=== PATIENT | female | born 1965 | race Caucasian/White ===

== ENCOUNTER 2016-12-10 18:40 | Emergency (ER) | payer OTHER ==
[2016-12-10 18:53] VITALS: TEMP 97.6
[2016-12-10] MEDS ORDERED: ACETAMINOPHEN TAB 500 MG TAB PO STA (19:19)
[2016-12-10] MEDS ORDERED: SODIUM CHLORIDE 0.9% 1,000 ML IV ONE (19:19)
[2016-12-10] MEDS ORDERED: METOCLOPRAMIDE 5 MG/ML 2 ML VIAL IVP STA (19:19)
[2016-12-10] MEDS ORDERED: diphenhydrAMINE 50 MG/ML 1 ML VIAL IVP STA (19:19)
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
--- NOTE | 2016-12-10 20:39 | XR ---
EXAMINATION TYPE: XR chest 1V portable DATE OF EXAM: 12/10/2016 COMPARISON: 08/06/2014 HISTORY: Chest pain TECHNIQUE: Single frontal view of the chest is obtained. FINDINGS: Heart and mediastinum are normal. Lungs are clear. Diaphragm is normal. Bony thorax is int act. IMPRESSION: Normal chest. No change.
[2016-12-10 20:41] VITALS: BP 148/76; PULSE 100; RESP 18
--- NOTE | 2016-12-10 20:41 | XR ---
EXAMINATION TYPE: XR pelvis AP view DATE OF EXAM: 12/10/2016 COMPARISON: NONE HISTORY: Pain TECHNIQUE: Single view FINDINGS: Pelvic ring appears intact. Proximal femurs and hip joints are intact. Sacroiliac joints ap pear normal. IMPRESSION: Negative pelvis x-ray exam.
--- NOTE | 2016-12-10 20:43 | XR ---
EXAMINATION TYPE: XR knee complete LT DATE OF EXAM: 12/10/2016 COMPARISON: NONE HISTORY: Knee pain TECHNIQUE: 3 views FINDINGS: I see no fracture nor dislocation. Joint spaces are fairly normal. There is no sign of knee joint effusion. IMPRESSION: Negative left knee exam
== END 2016-12-10 21:02 | disposition home or self-care (01) ==
LOC: EC 18:40
DX: S00.81XA Abrasion of other part of head, initial encounter (principal); M25.562 Pain in left knee; Z88.2 Allergy status to sulfonamides; Z79.82 Long term (current) use of aspirin; Z79.84 Long term (current) use of oral hypoglycemic drugs; Z79.899 Other long term (current) drug therapy; V18.4XXA Pedal cycle driver injured in noncollision transport accident in traffic accident, initial encounter; Y93.55 Activity, bike riding
CPT/HCPCS: 99284 ×2; 96374 ×2; 96375 ×2; 96361 ×2; 71010; 72170; 73562; 72125; 70450; J1200; J2765

== ENCOUNTER → 2018-10-11 | Outpatient (CLI) | payer OTHER ==
--- NOTE | 2018-10-12 16:05 | US ---
EXAMINATION TYPE: US transvaginal DATE OF EXAM: 10/11/2018 COMPARISON: NONE CLINICAL HISTORY: N93.8 abnormal uterine and vaginal bleeding. Postmenopausal bleeding. Difficult exa m due to overlying bowel gas TECHNIQUE: . Transvaginal sonographic images of the pelvis were acquired. Date of LMP: 4 years ago, states she has been having regular cycles again EXAM MEASUREMENTS: Uterus: 6.2 x 2.8 x 3.5 cm Endometrial Stripe: 0.6 cm Right Ovary: Surgically absent Left Ovary: 1.9 x 0.9 x 1.2 cm 1. Uterus: Anteverted Heterogeneous. Nabothian cyst visualized within cervix 2. Endometrium: Thickened for postmenopausal state 3. Right Ovary: Surgically absent 4. Left Ovary: wnl as visualized 5. Bilateral Adnexa: wnl 6. Posterior cul-de-sac: wnl IMPRESSION: 1. Normal pelvic ultrasound as visualized
== END | disposition home or self-care (01) ==
LOC: RADUSWWP 16:57
PROVIDERS: ATTEND Family Medicine
DX: N95.0 Postmenopausal bleeding (principal); Z88.2 Allergy status to sulfonamides; Z91.013 Allergy to seafood
CPT/HCPCS: 76830

== ENCOUNTER 2018-10-26 21:10 | Emergency (ER) | payer OTHER ==
[2018-10-26 21:42] VITALS: BP 191/84; PULSE 105; RESP 18; TEMP 97.9
[2018-10-26] MEDS ORDERED: IBUPROFEN 600 MG TAB PO STA (21:57)
--- NOTE | 2018-10-26 22:28 | XR ---
EXAM: XR Right Knee, 3 views CLINICAL HISTORY: : Pain TECHNIQUE: Three views of the right knee. COMPARISON: No relevant prior studies available. FINDINGS: Bones/joints: Unremarkable. No acute fracture. No dislocation. Soft tissues: Small joint effusion suggested in the suprapatella bursa IMPRESSION: No evidence for fracture. No evidence for malalignment. Suggestion of small effusion in the suprapatellar bursa
--- NOTE | 2018-10-26 23:24 | ED ---
General Adult HPI - General Chief complaint: Extremity Injury, Lower Stated complaint: Knee pain Time Seen by Provider: 10/26/18 21:32 Source: patient Mode of arrival: ambulatory Limitations: no limitations - History of Present Illness Initial comments: Patient is a 53-year-old female presenting to emergency Department with a chief complaint of right knee swelling patient reports the swelling is occurring for approximately one week and she went to her primary care who suspect osteoarthritis gave the patient a Medrol Dosepak. Patient is currently on the second day of the Medrol Dosepak. Patient reports no improvement in symptoms. Patient does wear orthopedic inserts for a height abnormality in her lower extremities. Patient reports approximately 1 week ago she changed the inserts in the right leg which is around the same time she started developing the symptoms. Patient reports mild tenderness with palpation at the right knee. Patient denies any calf tenderness or shortness of breath. Patient reports weightbearing is the aggravating factor denies any alleviated factors. Patient reports the pain is a 5 and dull. - Related Data Home Medications Medication Instructions Recorded Confirmed Albuterol Inhaler [Ventolin Hfa 1 - 2 puff INHALATION RT-Q6H PRN 08/07/14 12/13/16 Inhaler] Albuterol Nebulized [Ventolin 2.5 mg INHALATION RT-Q4H PRN 08/07/14 12/13/16 Nebulized] Aspirin 81 mg PO DAILY 08/07/14 12/13/16 Dextroamphetamine/Amphetamine 20 mg PO BID 08/07/14 12/13/16 [Adderall] Divalproex [Depakote] 500 mg PO BID 08/07/14 12/13/16 Ergocalciferol [Vitamin D2 50,000 unit PO Q7D 08/07/14 12/13/16 (DRISDOL)] HYDROcodone/APAP 5-325MG [[place] 0.5 tab PO BID PRN 08/07/14 12/13/16 5-325] Potassium Chloride 8 meq PO DAILY 08/07/14 12/13/16 QUEtiapine [SEROquel] 100 mg PO HS 08/07/14 12/13/16 Simvastatin [Zocor] 80 mg PO HS 08/07/14 12/13/16 cloNIDine HCL [Catapres] 0.2 mg PO BID 08/07/14 12/13/16 metFORMIN HCL [Glucophage] 500 mg PO BID 08/07/14 12/13/16 Baclofen [Lioresal] 5 - 10 mg PO TID PRN 12/10/16 12/13/16 DULoxetine HCL [Cymbalta] 60 mg PO BID 12/10/16 12/13/16 Allergies Allergy/AdvReac Type Severity Reaction Status Date / Time Sulfa (Sulfonamide Allergy Unknown Verified 10/26/18 21:42 Antibiotics) Review of Systems ROS Statement: Those systems with pertinent positive or pertinent negative responses have been documented in the HPI. ROS Other: All systems not noted in ROS Statement are negative. Past Medical History Past Medical History: Diabetes Mellitus, GERD/Reflux, Hyperlipidemia, Hypertension, Memory Impairment History of Any Multi-Drug Resistant Organisms: None Reported Past Surgical History: Adenoidectomy, Tonsillectomy Additional Past Surgical History / Comment(s): d & c Past Anesthesia/Blood Transfusion Reactions: Previous Problems w/ Anesthesia Additional Past Anesthesia/Blood Transfusion Reaction / Comment(s): hard to wake patient up. Past Psychological History: ADD/ADHD, Anxiety, Bipolar, Depression, Panic Di sorder, PTSD Smoking Status: Current every day smoker Past Alcohol Use History: Occasional Past Drug Use History: None Reported - Past Family History Father Family Medical History: Diabetes Mellitus, Hyperlipidemia, Hypertension Mother Additional Family Medical History / Comment(s): alcoholism, psych history General Exam Limitations: no limitations General appearance: alert, in no apparent distress Head exam: Present: atraumatic, normocephalic, normal inspection Eye exam: Present: normal appearance, PERRL, EOMI Pupils: Present: normal accommodation ENT exam: Present: normal exam, normal oropharynx, mucous membranes moist, TM's normal bilaterally, normal external ear exam Neck exam: Present: normal inspection, full ROM Respiratory exam: Present: normal lung sounds bilaterally Cardiovascular Exam: Present: regular rate, normal rhythm, normal heart sounds GI/Abdominal exam: Present: soft, normal bowel sounds Extremities exam: Present: full ROM, tenderness, normal capillary refill, joint swelling. Absent: normal inspection (Edema in the right knee), calf tenderness Back exam: Present: normal inspection, full ROM Neurological exam: Present: alert, oriented X3, CN II-XII intact Psychiatric exam: Present: normal affect, normal mood Skin exam: Present: warm, intact, normal color Course Vital Signs 10/26/18 21:40 Temperature 97.9 F Pulse Rate 105 H Respiratory 18 Rate Blood Pressure 191/84 O2 Sat by Pulse 96 Oximetry Procedures - Orthopedic Splinting/Casting Injury #1 Side: right Lower Extremity Injury Location: knee Lower Extremity Immobilizer: Ilya wrap Medical Decision Making - Medical Decision Making Patient is a 53-year-old female presenting to emergency Department with a chief complaint of right knee swelling. Patient appears to have mild swelling in the right knee with negative Homans sign. She is neurovascularly intact. Patient reports only pain with ambulation and no limitation of range of motion. X-ray of the knee is indicative of a small effusion in the suprapatellar bursa but no fractures or dislocations. I suspect the patient to have developed the symptoms due to recent changes in her orthopedic inserts. Patient advised to follow-up with ad operations specialist for further management if symptoms not improved. Patient advised to revert using to the previous orthopedic inserts and to monitor for improvement in symptoms. Strict return parameters were thoroughly discussed the patient was understanding and agreeable. Ilya wrap applied in the knee. Case discussed with physician. Disposition Clinical Impression: Knee effusion Disposition: HOME SELF-CARE Condition: Stable Instructions (If sedation given, give patient instructions): Swollen Knee Joint (ED) Additional Instructions: Please follow up with an ad operations specialist. Please return to emergency department if symptoms worsen. Is patient prescribed a controlled substance at d/c from ED?: No Referrals: Isacc Gongora MD [Primary Care Provider] - 1-2 days Aram Saravia DO [Medical Doctor] - 1-2 days Time of Disposition: 23:24
== END 2018-10-26 23:45 | disposition home or self-care (01) ==
LOC: EC 21:10
DX: M25.461 Effusion, right knee (principal); E11.9 Type 2 diabetes mellitus without complications; E78.5 Hyperlipidemia, unspecified; I10 Essential (primary) hypertension; F31.9 Bipolar disorder, unspecified; F41.0 Panic disorder [episodic paroxysmal anxiety]; F90.9 Attention-deficit hyperactivity disorder, unspecified type; F17.200 Nicotine dependence, unspecified, uncomplicated; Z88.2 Allergy status to sulfonamides; Z79.82 Long term (current) use of aspirin; Z79.84 Long term (current) use of oral hypoglycemic drugs; Z79.899 Other long term (current) drug therapy
CPT/HCPCS: 99283

== ENCOUNTER 2018-10-31 11:14 | Emergency (ER) | payer OTHER ==
[2018-10-31] MEDS ORDERED: SODIUM CHLORIDE 0.9% 1,000 ML IV ONE ×2 (11:30)
[2018-10-31 11:35] VITALS: TEMP 98.9
[2018-10-31] MEDS ORDERED: LORazepam 2 MG/ML INJ IV STA (11:38)
--- NOTE | 2018-10-31 11:44 | ED ---
Altered Mental Status HPI - General Chief Complaint: Altered Mental Status Stated Complaint: Mental health Time Seen by Provider: 10/31/18 11:19 Source: patient, RN notes reviewed, old records reviewed Mode of arrival: EMS Limitations: no limitations - History of Present Illness Initial Comments: Patient is a 53-year-old female reportedly recently homeless staying at a community center. She had reported agitation and community center and EMS was contacted. She went onto the EMS without difficulty but then shortly after became increasingly agitated, yelling profanities and exhibiting signs of Tourette's. Patient has had no history of Tourette's the past. She reports that she has not been taking her medications as prescribed for the past few m ont. She states that she is diabetic and istaking Depakote as well. Patient reports that she has had no significant pain at this time. Patient arrives to emergency department today with agitation, and occasional episodes of lucency in conversation and then back to yelling profanities. - Related Data Home Medications Medication Instructions Recorded Confirmed Aspirin 81 mg PO DAILY 08/07/14 10/31/18 Dextroamphetamine/Amphetamine 20 mg PO BID 08/07/14 10/31/18 [Adderall] Divalproex [Depakote] 500 mg PO BID 08/07/14 10/31/18 HYDROcodone/APAP 5-325MG [[place] 0.5 tab PO BID PRN 08/07/14 10/31/18 5-325] Potassium Chloride 8 meq PO DAILY 08/07/14 10/31/18 Simvastatin [Zocor] 80 mg PO HS 08/07/14 10/31/18 cloNIDine HCL [Catapres] 0.2 mg PO BID 08/07/14 10/31/18 Baclofen [Lioresal] 10 mg PO TID PRN 12/10/16 10/31/18 DULoxetine HCL [Cymbalta] 60 mg PO BID 12/10/16 10/31/18 Chlorthalidone [Hygroton] 25 mg PO DAILY 10/31/18 10/31/18 Glimepiride [Amaryl] 4 mg PO BID 10/31/18 10/31/18 Levothyroxine Sodium [Synthroid] 50 mcg PO DAILY 10/31/18 10/31/18 QUEtiapine FUMARATE [SEROquel] 300 mg PO HS 10/31/18 10/31/18 metFORMIN HCL 1,000 mg PO BID 10/31/18 10/31/18 Allergies Allergy/AdvReac Type Severity Reaction Status Date / Time Sulfa (Sulfonamide Allergy Unknown Verified 10/31/18 11:45 Antibiotics) Review of Systems ROS Statement: Those systems with pertinent positive or pertinent negative responses have been documented in the HPI. ROS Other: All systems not noted in ROS Statement are negative. Past Medical History Past Medical History: Diabetes Mellitus, GERD/Reflux, Hyperlipidemia, Hypertension, Memory Impairment History of Any Multi-Drug Resistant Organisms: None Reported Past Surgical History: Adenoidectomy, Tonsillectomy Additional Past Surgical History / Comment(s): d & c Past Anesthesia/Blood Transfusion Reactions: Previous Problems w/ Anesthesia Additional Past Anesthesia/Blood Transfusion Reaction / Comment(s): hard to wake patient up. Past Psychological History: ADD/ADHD, Anxiety, Bipolar, Depression, Panic Disorder, PTSD Smoking Status: Current every day smoker Past Alcohol Use History: Occasional Past Drug Use History: None Reported - Past Family History Father Family Medical History: Diabetes Mellitus, Hyperlipidemia, Hypertension Mother Additional Family Medical History / Comment(s): alcoholism, psych history General Exam - General Exam Comments Initial Comments: 53-year-old female. Alert and oriented to self and date and place but will occasionally have episodes of unintelligible speech. Limitations: no limitations, altered mental status (Patient has loosened episodes conversation minimal shout profanities.) General appearance: alert, appears intoxicated, anxious, other (smell of EtOH.) Head exam: Present: atraumatic, normocephalic, normal inspection Eye exam: Present: normal appearance, PERRL, EOMI. Absent: scleral icterus, conjunctival injection, periorbital swelling ENT exam: Present: normal exam, mucous membranes moist Neck exam: Present: normal inspection. Absent: tenderness, meningismus, lymphadenopathy Respiratory exam: Present: normal lung sounds bilaterally. Absent: respiratory distress, wheezes, rales, rhonchi, stridor Cardiovascular Exam: Present: regular rate, normal rhythm, normal heart sounds. Absent: systolic murmur, diastolic murmur, rubs, gallop, clicks GI/Abdominal exam: Present: soft, normal bowel sounds. Absent: distended, tenderness, guarding, rebound, rigid Extremities exam: Present: normal inspection, other (Dystonic movements of upper arms and legs.) Back exam: Present: normal inspection Neurological exam: Present: alert, altered Psychiatric exam: Present: agitated. Absent: normal affect, normal mood Skin exam: Present: warm, dry, intact, normal color. Absent: rash Course Vital Signs 10/31/18 10/31/18 10/31/18 11:28 12:19 12:30 Temperature 98.9 F Pulse Rate 106 H 103 H 103 H Respiratory 28 H Rate Blood Pressure 151/117 151/117 158/102 O2 Sat by Pulse 96 96 91 L Oximetry 10/31/18 10/31/18 10/31/18 13:00 13:30 13:37 Temperature Pulse Rate 96 100 100 Respiratory 20 Rate Blood Pressure 143/94 132/86 132/86 O2 Sat by Pulse 92 L Oximetry 10/31/18 10/31/18 10/31/18 14:00 14:30 15:00 Temperature Pulse Rate 98 96 101 H Respiratory 20 20 Rate Blood Pressure 162/94 157/94 151/97 O2 Sat by Pulse Oximetry 10/31/18 10/31/18 10/31/18 15:30 16:00 16:30 Temperature Pulse Rate 107 H Respiratory Rate Blood Pressure 126/90 143/109 143/109 O2 Sat by Pulse Oximetry 10/31/18 10/31/18 17:00 17:30 Temperature Pulse Rate 106 H Respiratory 18 Rate Blood Pressure 143/109 153/69 O2 Sat by Pulse 94 L Oximetry - Reevaluation(s) Reevaluation #1: 10/31/18 11:42 Upon reviewing of patient's medication and fell bottles it appears the Patient has not been taking her medications since June of this year. She did have baclofen filled on 96 and has taking some of these she does report that she could have sold them as well. Reevaluation #2: 10/31/18 12:23 Patient is given IV Ativan to help with agitation. Reevaluated and resting comfortably in bed sleeping. We'll go to CT. Reevaluation #3: 10/31/18 13:17 Patient was reevaluated time resting comfortably and sleeping. She was given Ativan. She is arousable. Patient CT was reviewed and negative for any acute process. Patient is medically clear at this time for EPS evaluation. Medical Decision Making - Medical Decision Making Patient is a 33-year-old female who presents emergency Department today with complaints of altered mental status, requesting C6 services. She is currently homeless staying at care shelters. When she arrived to arrived quite agitated yelling profanities but then would have lucid conversations between, concern for similar to Tourette's. Patient has been noncompliant with multiple or medications. Patient had full evaluation given fluids and due to agitation was given Ativan. After resting emergency room if she was alert and oriented and much more cooperative. No further yelling profanities or concern for dystonic reaction. Patient was evaluated by mobile crisis unit and EPS. They deem the Patient is stable for discharge home and has outpatient follow-up with mobile crisis unit. Patient is agreeable to this plan. Patient has been advised to return to the ED if any alarming signs or symptoms occur. - Lab Data Result diagrams: 10/31/18 11:50 10/31/18 11:50 Lab Results 10/31/18 10/31/18 10/31/18 Range/Units 11:50 11:50 11:50 WBC 12.6 H (3.8-10.6) k/uL RBC 4.61 (3.80-5.40) m/uL Hgb 14.1 (11.4-16.0) gm/dL Hct 41.7 (34.0-46.0) % MCV 90.4 (80.0-100.0) fL MCH 30.5 (25.0-35.0) pg MCHC 33.8 (31.0-37.0) g/dL RDW 13.4 (11.5-15.5) % Plt Count 338 (150-450) k/uL Neutrophils % 67 % Lymphocytes % 25 % Monocytes % 3 % Eosinophils % 3 % Basophils % 1 % Neutrophils # 8.4 H (1.3-7.7) k/uL Lymphocytes # 3.2 (1.0-4.8) k/uL Monocytes # 0.4 (0-1.0) k/uL Eosinophils # 0.4 (0-0.7) k/uL Basophils # 0.1 (0-0.2) k/uL PT (9.0-12.0) sec INR (<1.2) APTT (22.0-30.0) sec Sodium 142 (137-145) mmol/L Potassium 3.7 (3.5-5.1) mmol/L Chloride 99 (98-107) mmol/L Carbon Dioxide 29 (22-30) mmol/L Anion Gap 14 mmol/L BUN 17 (7-17) mg/dL Creatinine 0.50 L (0.52-1.04) mg/dL Est GFR (CKD-EPI)AfAm >90 (>60 ml/min/1.73 sqM) Est GFR (CKD-EPI)NonAf >90 (>60 ml/min/1.73 sqM) Glucose 220 H (74-99) mg/dL Calcium 10.5 H (8.4-10.2) mg/dL Total Bilirubin 0.4 (0.2-1.3) mg/dL AST 20 (14-36) U/L ALT 17 (9-52) U/L Alkaline Phosphatase 74 (38-126) U/L Troponin I (0.000-0.034) ng/mL Total Protein 7.8 (6.3-8.2) g/dL Albumin 4.6 (3.5-5.0) g/dL Urine Color Colorless Urine Appearance Clear (Clear) Urine pH 5.5 (5.0-8.0) Ur Specific [place] 1.005 (1.001-1.035) Urine Protein Negative (Negative) Urine Glucose (UA) Negative (Negative) Urine Ketones Negative (Negative) Urine Blood Negative (Negative) Urine Nitrite Negative (Negative) Urine Bilirubin Negative (Negative) Urine Urobilinogen <2.0 (<2.0) mg/dL Ur Leukocyte Esterase Negative (Negative) Urine Opiates Screen Not Detected (NotDetected) Ur Oxycodone Screen Not Detected (NotDetected) Urine Methadone Screen Not Detected (NotDetected) Ur Propoxyphene Screen Not Detected (NotDetected) Ur Barbiturates Screen Not Detected (NotDetected) Valproic Acid 17.7 ug/mL U Tricyclic Antidepress Not Detected (NotDetected) Ur Phencyclidine Scrn Not Detected (NotDetected) Ur Amphetamines Screen Not Detected (NotDetected) U Methamphetamines Scrn Not Detected (NotDetected) U Benzodiazepines Scrn Not Detected (NotDetected) Urine Cocaine Screen Not Detected (NotDetected) U Marijuana (THC) Screen Not Detected (NotDetected) Serum Alcohol 82 mg/dL 10/31/18 10/31/18 Range/Units 11:50 11:50 WBC (3.8-10.6) k/uL RBC (3.80-5.40) m/uL Hgb (11.4-16.0) gm/dL Hct (34.0-46.0) % MCV (80.0-100.0) fL MCH (25.0-35.0) pg MCHC (31.0-37.0) g/dL RDW (11.5-15.5) % Plt Count (150-450) k/uL Neutrophils % % Lymphocytes % % Monocytes % % Eosinophils % % Basophils % % Neutrophils # (1.3-7.7) k/uL Lymphocytes # (1.0-4.8) k/uL Monocytes # (0-1.0) k/uL Eosinophils # (0-0.7) k/uL Basophils # (0-0.2) k/uL PT 9.4 (9.0-12.0) sec INR 0.9 (<1.2) APTT 22.2 (22.0-30.0) sec Sodium (137-145) mmol/L Potassium (3.5-5.1) mmol/L Chloride (98-107) mmol/L Carbon Dioxide (22-30) mmol/L Anion Gap mmol/L BUN (7-17) mg/dL Creatinine (0.52-1.04) mg/dL Est GFR (CKD-EPI)AfAm (>60 ml/min/1.73 sqM) Est GFR (CKD-EPI)NonAf (>60 ml/min/1.73 sqM) Glucose (74-99) mg/dL Calcium (8.4-10.2) mg/dL Total Bilirubin (0.2-1.3) mg/dL AST (14-36) U/L ALT (9-52) U/L Alkaline Phosphatase (38-126) U/L Troponin I <0.012 (0.000-0.034) ng/mL Total Protein (6.3-8.2) g/dL Albumin (3.5-5.0) g/dL Urine Color Urine Appearance (Clear) Urine pH (5.0-8.0) Ur Specific [place] (1.001-1.035) Urine Protein (Negative) Urine Glucose (UA) (Negative) Urine Ketones (Negative) Urine Blood (Negative) Urine Nitrite (Negative) Urine Bilirubin (Negative) Urine Urobilinogen (<2.0) mg/dL Ur Leukocyte Esterase (Negative) Urine Opiates Screen (NotDetected) Ur Oxycodone Screen (NotDetected) Urine Methadone Screen (NotDetected) Ur Propoxyphene Screen (NotDetected) Ur Barbiturates Screen (NotDetected) Valproic Acid ug/mL U Tricyclic Antidepress (NotDetected) Ur Phencyclidine Scrn (NotDetected) Ur Amphetamines Screen (NotDetected) U Methamphetamines Scrn (NotDetected) U Benzodiazepines Scrn (NotDetected) Urine Cocaine Screen (NotDetected) U Marijuana (THC) Screen (NotDetected) Serum Alcohol mg/dL 10/31/18 12:46 EKG performed at 02/09/2017 shows normal sinus rhythm prolonged QT. Ventricular rate 90 bpm. Intervals 1:30 milliseconds. QRS duration 102 ms. QT QTc is 392/500 ms. - Radiology Data Radiology results: report reviewed Disposition Clinical Impression: History of psychiatric disorder, Mood changes Disposition: HOME SELF-CARE Condition: Good Instructions (If sedation given, give patient instructions): Mood Disorders (ED) Additional Instructions: Follow-up with mobile crisis unit. Return to the emergency department if any alarming signs or symptoms occur. Is patient prescribed a controlled substance at d/c from ED?: No Referrals: Isacc Gongora MD [Primary Care Provider] - 1-2 days Time of Disposition: 17:54
[2018-10-31] MEDS: LORazepam 2 MG/ML INJ IM STA ×2 (12:02→12:03)
[2018-10-31 12:07] LABS: Appearance,Urine Clear (Clear); Bilirubin,Urine Negative (Negative); Blood,Urine Negative (Negative); Color,Urine Colorless; Glucose,Urine (UA) Negative (Negative); Ketones,Urine Negative (Negative); Leukocyte Esterase,Urine Negative (Negative); Nitrite,Urine Negative (Negative); PH, Urine 5.5 (5.0-8.0); Protein,Urine Negative (Negative); Specific Gravity,Urine 1.005 (1.001-1.035); Urobilinogen,Urine <2.0 mg/dL (<2.0)
[2018-10-31 12:17] LABS: INR 0.9 (<1.2); Partial Thromboplastin Time 22.2 sec (22.0-30.0); Prothrombin Time 9.4 sec (9.0-12.0)
[2018-10-31 12:19] LABS: ALT 17 U/L (9-52); AST 20 U/L (14-36); African American GFR (CKD) >90 (>60 ml/min/1.73 sqM); Albumin 4.6 g/dL (3.5-5.0); Alkaline Phosphatase 74 U/L (38-126); Anion Gap 14 mmol/L; Blood Urea Nitrogen 17 mg/dL (7-17); Calcium 10.5 mg/dL (8.4-10.2); Carbon Dioxide 29 mmol/L (22-30); Chloride 99 mmol/L (98-107); Glucose 220 mg/dL (74-99); Potassium 3.7 mmol/L (3.5-5.1); Sodium 142 mmol/L (137-145); Total Bilirubin 0.4 mg/dL (0.2-1.3); Total Protein 7.8 g/dL (6.3-8.2)
[2018-10-31 12:23] LABS: Basophils # (A) 0.1 k/uL (0-0.2); Basophils % (A) 1 %; Eosinophils # (A) 0.4 k/uL (0-0.7); Eosinophils % (A) 3 %; HCT 41.7 % (34.0-46.0); HGB 14.1 gm/dL (11.4-16.0); Lymphocytes # (A) 3.2 k/uL (1.0-4.8); Lymphocytes % (A) 25 %; MCH 30.5 pg (25.0-35.0); MCHC 33.8 g/dL (31.0-37.0); MCV 90.4 fL (80.0-100.0); Mean Platelet Volume 6.5; Monocytes # (A) 0.4 k/uL (0-1.0); Monocytes % (A) 3 %; Neutrophils # (A) 8.4 k/uL (1.3-7.7); Neutrophils % (A) 67 %; Platelet Count 338 k/uL (150-450); RBC 4.61 m/uL (3.80-5.40); RDW 13.4 % (11.5-15.5); WBC 12.6 k/uL (3.8-10.6)
[2018-10-31 12:32] LABS: Alcohol 82 mg/dL
[2018-10-31 12:37] LABS: Amphetamine Screen,Urine Not Detected (NotDetected); Barbiturate Screen,Urine Not Detected (NotDetected); Benzodiazepines Screen,Urine Not Detected (NotDetected); Cocaine Screen,Urine Not Detected (NotDetected); Methadone Screen, Urine Not Detected (NotDetected); Opiate Screen,Urine Not Detected (NotDetected); Oxycodone Screen, Urine Not Detected (NotDetected); Phencyclidine Screen,Urine Not Detected (NotDetected); Tricyclic Antidepressant,Urine Not Detected (NotDetected); Urn Cannabinoid Scrn Not Detected (NotDetected)
--- NOTE | 2018-10-31 12:58 | CT ---
EXAMINATION TYPE: CT brain wo con DATE OF EXAM: 10/31/2018 HISTORY: AMS CT DLP: 1098.4 mGycm. Automated Exposure Control for Dose Reduction was Utilized. TECHNIQUE: CT scan of the head is performed without contrast. COMPARISON: CT brain December 13, 2016. FINDINGS: There is no acute intracranial hemorrhage or midline shift identified. There is diffuse v entricular and sulcal prominence consistent with diffuse age-related cerebral atrophy. Hester-white mat ter differentiation is fairly well maintained. The globes are intact and the visualized sinuses are clear. IMPRESSION: No acute intracranial hemorrhage or midline shift. There is mild diffuse age-related ce rebral atrophy redemonstrated. No significant change from prior.
[2018-10-31 17:34] VITALS: BP 153/69; PULSE 106; RESP 18
== END 2018-10-31 18:30 | disposition home or self-care (01) ==
LOC: EC 11:14
DX: R45.1 Restlessness and agitation (principal); R25.8 Other abnormal involuntary movements; R41.82 Altered mental status, unspecified; E11.9 Type 2 diabetes mellitus without complications; E78.5 Hyperlipidemia, unspecified; I10 Essential (primary) hypertension; F90.9 Attention-deficit hyperactivity disorder, unspecified type; F41.0 Panic disorder [episodic paroxysmal anxiety]; F31.9 Bipolar disorder, unspecified; F17.200 Nicotine dependence, unspecified, uncomplicated; Z88.2 Allergy status to sulfonamides; Z79.82 Long term (current) use of aspirin; Z79.84 Long term (current) use of oral hypoglycemic drugs; Z79.899 Other long term (current) drug therapy; Z81.8 Family history of other mental and behavioral disorders
CPT/HCPCS: 36415; 93005; 80164; 80053; 84484; 85025; 85610; 85730; 81003; 80306; 70450; 99285; 96374; 96361 ×5; G0480; J2060; 80320

== ENCOUNTER 2018-11-24 15:12 | Emergency (ER) | payer OTHER ==
[2018-11-24] MEDS ORDERED: LORazepam 2 MG/ML INJ IV STA (15:48)
--- NOTE | 2018-11-24 16:16 | ED ---
Psych HPI - General Source: patient, EMS, RN notes reviewed Mode of arrival: EMS Limitations: no limitations <Richi Lew - Last Filed: 11/24/18 16:14> <Chance Garcia - Last Filed: 11/24/18 22:09> - General Chief Complaint: Psychiatric Symptoms Stated Complaint: Mental Health Time Seen by Provider: 11/24/18 15:25 - History of Present Illness Initial Comments: 53-year-old female presents emergency Department via EMS for abnormal behavior. Patient was found to be acting bizarre. Patient states that she has no specific complaints. Patient does admit she has done a doesn't his landing states that she normally has his abnormal jerking movements but they are worsened usual. Patient states that she has some lower leg while pain but this is chronic in nature. Denies any chest or shortness breath. She states she had multiple medications and has been taking her medications. Patient denies any suicidal homicidal ideation. Denies any drug use no alcohol abuse (Richi Lew) - Related Data Home Medications Medication Instructions Recorded Confirmed Aspirin 81 mg PO DAILY 08/07/14 11/24/18 Dextroamphetamine/Amphetamine 20 mg PO BID 08/07/14 11/24/18 [Adderall] Divalproex [Depakote] 500 mg PO BID 08/07/14 11/24/18 HYDROcodone/APAP 5-325MG [[place] 1 tab PO DAILY PRN 08/07/14 11/24/18 5-325] Potassium Chloride 8 meq PO DAILY 08/07/14 11/24/18 Simvastatin [Zocor] 80 mg PO HS 08/07/14 11/24/18 cloNIDine HCL [Catapres] 0.2 mg PO BID 08/07/14 11/24/18 Baclofen [Lioresal] 10 mg PO TID PRN 12/10/16 11/24/18 DULoxetine HCL [Cymbalta] 60 mg PO BID 12/10/16 11/24/18 Chlorthalidone [Hygroton] 25 mg PO DAILY 10/31/18 11/24/18 Glimepiride [Amaryl] 4 mg PO BID 10/31/18 11/24/18 Levothyroxine Sodium [Synthroid] 50 mcg PO MOTUWETHFRSA 10/31/18 11/24/18 QUEtiapine FUMARATE [SEROquel] 300 mg PO HS 10/31/18 11/24/18 metFORMIN HCL 1,000 mg PO BID 10/31/18 11/24/18 Albuterol Nebulized [Ventolin 2.5 mg INHALATION RT-QID 11/24/18 11/24/18 Nebulized] Aspirin EC [Ecotrin Low Dose] 81 mg PO DAILY 11/24/18 11/24/18 Ergocalciferol [Vitamin D2] 50,000 unit PO Q14D 11/24/18 11/24/18 Nystatin [Nystop] 1 applic TOPICAL QID 11/24/18 11/24/18 Allergies Allergy/AdvReac Type Severity Reaction Status Date / Time Sulfa (Sulfonamide Allergy Unknown Verified 11/24/18 16:59 Antibiotics) Review of Systems ROS Other: All systems not noted in ROS Statement are negative. <Richi Lew - Last Filed: 11/24/18 16:14> ROS Other: All systems not noted in ROS Statement are negative. <Chance Garcia - Last Filed: 11/24/18 22:09> ROS Statement: Those systems with pertinent positive or pertinent negative responses have been documented in the HPI. Past Medical History Past Medical History: Diabetes Mellitus, GERD/Reflux, Hyperlipidemia, Hypertension, Memory Impairment History of Any Multi-Drug Resistant Organisms: None Reported Past Surgical History: Adenoidectomy, Tonsillectomy Additional Past Surgical History / Comment(s): d & c Past Anesthesia/Blood Transfusion Reactions: Previous Problems w/ Anesthesia Additional Past Anesthesia/Blood Transfusion Reaction / Comment(s): hard to wake patient up. Past Psychological History: ADD/ADHD, Anxiety, Bipolar, Depression, Panic Disorder, PTSD Smoking Status: Current every day smoker Past Alcohol Use History: Occasional Past Drug Use History: None Reported - Past Family History Father Family Medical History: Diabetes Mellitus, Hyperlipidemia, Hypertension Mother Additional Family Medical History / Comment(s): alcoholism, psych history <Richi Lew - Last Filed: 11/24/18 16:14> General Exam Limitations: no limitations General appearance: alert, in no apparent distress Head exam: Present: atraumatic, normocephalic, normal inspection Eye exam: Present: normal appearance, PERRL, EOMI. Absent: scleral icterus, conjunctival injection, periorbital swelling ENT exam: Present: normal exam, normal oropharynx, mucous membranes moist Neck exam: Present: normal inspection, full ROM. Absent: tenderness, meningismus, lymphadenopathy Respiratory exam: Present: normal lung sounds bilaterally. Absent: respiratory distress, wheezes, rales, rhonchi, stridor Cardiovascular Exam: Present: regular rate, normal rhythm, normal heart sounds. Absent: systolic murmur, diastolic murmur, rubs, gallop, clicks GI/Abdominal exam: Present: soft, normal bowel sounds. Absent: distended, tend erness, guarding, rebound, rigid Neurological exam: Present: alert Psychiatric exam: Present: agitated, anxious Skin exam: Present: warm, dry, intact, normal color. Absent: rash <Richi Lew - Last Filed: 11/24/18 16:14> Course <Chance Garcia - Last Filed: 11/24/18 22:09> Vital Signs 11/24/18 11/24/18 15:16 18:14 Temperature 98.2 F Pulse Rate 104 H 99 Respiratory 16 16 Rate Blood Pressure 139/94 150/87 O2 Sat by Pulse 99 99 Oximetry - Reevaluation(s) Reevaluation #1: 11/24/18 19:45 Certificate of commitment has been completed. EPS nurse is currently working on placement for the patient for psychiatric treatment. (Chance Garcia) Medical Decision Making - Lab Data Result diagrams: 11/24/18 16:05 11/24/18 16:05 <Chance Garcia - Last Filed: 11/24/18 22:09> - Medical Decision Making Patient has been medically cleared. Patient was evaluated by EPS nurse in the ED. Certificate of commitment was completed. Patient will be transferred to [facility] for psychiatric evaluation/treatment. Patient was accepted for transfer by Dr. Washington (psych). (Chance Garcia) - Lab Data Lab Results 11/24/18 11/24/18 11/24/18 Range/Units 15:53 16:05 16:05 WBC 11.9 H (3.8-10.6) k/uL RBC 4.33 (3.80-5.40) m/uL Hgb 14.2 (11.4-16.0) gm/dL Hct 39.9 (34.0-46.0) % MCV 92.1 (80.0-100.0) fL MCH 32.9 (25.0-35.0) pg MCHC 35.7 (31.0-37.0) g/dL RDW 13.2 (11.5-15.5) % Plt Count 367 (150-450) k/uL Neutrophils % 65 % Lymphocytes % 25 % Monocytes % 6 % Eosinophils % 1 % Basophils % 1 % Neutrophils # 7.7 (1.3-7.7) k/uL Lymphocytes # 3.0 (1.0-4.8) k/uL Monocytes # 0.7 (0-1.0) k/uL Eosinophils # 0.2 (0-0.7) k/uL Basophils # 0.1 (0-0.2) k/uL Sodium 142 (137-145) mmol/L Potassium 3.7 (3.5-5.1) mmol/L Chloride 100 (98-107) mmol/L Carbon Dioxide 30 (22-30) mmol/L Anion Gap 12 mmol/L BUN 18 H (7-17) mg/dL Creatinine 0.41 L (0.52-1.04) mg/dL Est GFR (CKD-EPI)AfAm >90 (>60 ml/min/1.73 sqM) Est GFR (CKD-EPI)NonAf >90 (>60 ml/min/1.73 sqM) Glucose 142 H (74-99) mg/dL Calcium 10.2 (8.4-10.2) mg/dL Total Bilirubin 0.5 (0.2-1.3) mg/dL AST 31 (14-36) U/L ALT 25 (9-52) U/L Alkaline Phosphatase 91 (38-126) U/L Total Protein 7.6 (6.3-8.2) g/dL Albumin 4.5 (3.5-5.0) g/dL Urine Color Yellow Urine Appearance Clear (Clear) Urine pH 5.5 (5.0-8.0) Ur Specific [place] 1.027 (1.001-1.035) Urine Protein Trace H (Negative) Urine Glucose (UA) Negative (Negative) Urine Ketones 2+ H (Negative) Urine Blood Negative (Negative) Urine Nitrite Negative (Negative) Urine Bilirubin Negative (Negative) Urine Urobilinogen <2.0 (<2.0) mg/dL Ur Leukocyte Esterase Negative (Negative) Urine Opiates Screen Detected H (NotDetected) Ur Oxycodone Screen Not Detected (NotDetected) Urine Methadone Screen Not Detected (NotDetected) Ur Propoxyphene Screen Not Detected (NotDetected) Ur Barbiturates Screen Not Detected (NotDetected) U Tricyclic Antidepress Not Detected (NotDetected) Ur Phencyclidine Scrn Not Detected (NotDetected) Ur Amphetamines Screen Detected H (NotDetected) U Methamphetamines Scrn Not Detected (NotDetected) U Benzodiazepines Scrn Not Detected (NotDetected) Urine Cocaine Screen Not Detected (NotDetected) U Marijuana (THC) Screen Not Detected (NotDetected) Serum Alcohol <10 mg/dL Disposition <Richi Lew - Last Filed: 11/24/18 16:14> Time of Disposition: 21:50 - Out of Hospital Transfer - Req. Specs Out of Hospital Transfer - Requested Specifics: Psychiatric Non-ICU ([facility]) <Chance Garcia - Last Filed: 11/24/18 22:09> Clinical Impression: Delusional thoughts Disposition: TRANSFER TO PSYCH HOSP/UNIT Condition: Stable Referrals: Isacc Gongora MD [Primary Care Provider] - 1-2 days
[2018-11-24 16:26] LABS: Basophils # (A) 0.1 k/uL (0-0.2); Basophils % (A) 1 %; Eosinophils # (A) 0.2 k/uL (0-0.7); Eosinophils % (A) 1 %; HCT 39.9 % (34.0-46.0); HGB 14.2 gm/dL (11.4-16.0); Lymphocytes % (A) 25 %; MCH 32.9 pg (25.0-35.0); MCHC 35.7 g/dL (31.0-37.0); MCV 92.1 fL (80.0-100.0); Mean Platelet Volume 6.7; Monocytes # (A) 0.7 k/uL (0-1.0); Monocytes % (A) 6 %; Neutrophils # (A) 7.7 k/uL (1.3-7.7); Neutrophils % (A) 65 %; Platelet Count 367 k/uL (150-450); RBC 4.33 m/uL (3.80-5.40); RDW 13.2 % (11.5-15.5); WBC 11.9 k/uL (3.8-10.6)
[2018-11-24 16:32] LABS: Appearance,Urine Clear (Clear); Bilirubin,Urine Negative (Negative); Blood,Urine Negative (Negative); Color,Urine Yellow; Glucose,Urine (UA) Negative (Negative); Ketones,Urine 2+ (Negative); Leukocyte Esterase,Urine Negative (Negative); Nitrite,Urine Negative (Negative); PH, Urine 5.5 (5.0-8.0); Protein,Urine Trace (Negative); Specific Gravity,Urine 1.027 (1.001-1.035); Urobilinogen,Urine <2.0 mg/dL (<2.0)
[2018-11-24 16:38] LABS: Amphetamine Screen,Urine Detected (NotDetected); Barbiturate Screen,Urine Not Detected (NotDetected); Benzodiazepines Screen,Urine Not Detected (NotDetected); Cocaine Screen,Urine Not Detected (NotDetected); Methadone Screen, Urine Not Detected (NotDetected); Opiate Screen,Urine Detected (NotDetected); Oxycodone Screen, Urine Not Detected (NotDetected); Phencyclidine Screen,Urine Not Detected (NotDetected); Tricyclic Antidepressant,Urine Not Detected (NotDetected); Urn Cannabinoid Scrn Not Detected (NotDetected)
[2018-11-24 16:43] LABS: ALT 25 U/L (9-52); AST 31 U/L (14-36); African American GFR (CKD) >90 (>60 ml/min/1.73 sqM); Albumin 4.5 g/dL (3.5-5.0); Alcohol <10 mg/dL; Alkaline Phosphatase 91 U/L (38-126); Anion Gap 12 mmol/L; Blood Urea Nitrogen 18 mg/dL (7-17); Calcium 10.2 mg/dL (8.4-10.2); Carbon Dioxide 30 mmol/L (22-30); Chloride 100 mmol/L (98-107); Glucose 142 mg/dL (74-99); Non-African American GFR(CKD) >90 (>60 ml/min/1.73 sqM); Potassium 3.7 mmol/L (3.5-5.1); Sodium 142 mmol/L (137-145); Total Bilirubin 0.5 mg/dL (0.2-1.3); Total Protein 7.6 g/dL (6.3-8.2)
[2018-11-25 10:02] LABS: Glucose,Whole Blood 227 mg/dL (75-99)
[2018-11-25 13:58] VITALS: BP 160/78; PULSE 97; RESP 18; TEMP 98
== END 2018-11-25 15:14 ==
LOC: EC 15:12
DX: F22 Delusional disorders (principal); F41.9 Anxiety disorder, unspecified; F31.9 Bipolar disorder, unspecified; F43.10 Post-traumatic stress disorder, unspecified; F41.0 Panic disorder [episodic paroxysmal anxiety]; F90.9 Attention-deficit hyperactivity disorder, unspecified type; E11.9 Type 2 diabetes mellitus without complications; K21.9 Gastro-esophageal reflux disease without esophagitis; E78.5 Hyperlipidemia, unspecified; I10 Essential (primary) hypertension; F17.200 Nicotine dependence, unspecified, uncomplicated; Z79.82 Long term (current) use of aspirin; Z79.84 Long term (current) use of oral hypoglycemic drugs; Z79.899 Other long term (current) drug therapy; Z79.890 Hormone replacement therapy; Z88.2 Allergy status to sulfonamides; Z90.89 Acquired absence of other organs
CPT/HCPCS: 36415 ×2; 80053; 85025; 81003; 80306; 96374; 99285; G0480; J2060; 80320

== ENCOUNTER 2018-12-06 06:34 | Emergency (ER) | payer OTHER ==
[2018-12-06] MEDS ORDERED: HYDROcodone/APAP 5-325MG 1 EACH TAB PO STA (08:40)
--- NOTE | 2018-12-06 09:16 | US ---
EXAMINATION TYPE: US venous doppler duplex LE RT DATE OF EXAM: 12/06/2018 8:35 AM COMPARISON: NONE CLINICAL HISTORY: LEG PAIN; SWELLING. Intermittent right leg pain and swelling x 1 month SIDE PERFORMED: Right TECHNIQUE: The lower extremity deep venous system is examined utilizing real time linear array sonog adrienne with graded compression, doppler sonography and color-flow sonography. VESSELS IMAGED: External Iliac Vein (EIV) Common Femoral Vein Deep Femoral Vein Greater Saphenous Vein * Femoral Vein Popliteal Vein Small Saphenous Vein * Proximal Calf Veins (* superficial vessels) Right Leg: Appears negative for DVT Grayscale, color doppler, spectral doppler imaging performed of the deep veins of the right lower ext remity. There is normal flow, compressibility, vascular waveforms. IMPRESSION: No ultrasound evidence for acute DVT in the right lower extremity.
== END 2018-12-06 08:47 | disposition home or self-care (01) ==
LOC: EC 06:34
DX: M79.89 Other specified soft tissue disorders (principal); M79.604 Pain in right leg; E11.9 Type 2 diabetes mellitus without complications; I10 Essential (primary) hypertension; F17.200 Nicotine dependence, unspecified, uncomplicated; Z79.84 Long term (current) use of oral hypoglycemic drugs; Z79.899 Other long term (current) drug therapy; Z88.2 Allergy status to sulfonamides; Z86.718 Personal history of other venous thrombosis and embolism
CPT/HCPCS: 99283

== ENCOUNTER 2018-12-13 22:09 | Emergency (ER) | payer OTHER ==
[2018-12-13 22:14] VITALS: BP 151/76; TEMP 97.7
[2018-12-13] MEDS ORDERED: IPRATROPIUM-ALBUTEROL 3 ML NEB INHALATION STA (22:44)
--- NOTE | 2018-12-13 22:51 | ED ---
General Adult HPI - General Chief complaint: Shortness of Breath Stated complaint: congestion Time Seen by Provider: 12/13/18 22:24 Source: patient, RN notes reviewed Mode of arrival: ambulatory Limitations: no limitations - History of Present Illness Initial comments: This a 53-year-old female presents emergency Department chief complaint cough congestion and mild dyspnea. Patient does have some underlying of asthma and states that she typically uses an inhaler or nebulizer during the wintertime. 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 Patient states that she just feels sick. Patient reports no fevers or chills. Denies any chest pain, palpitations. Denies any difficulty swallowing, ear pain. She does admit to mild nasal congestion. - Related Data Home Medications Medication Instructions Recorded Confirmed Aspirin 81 mg PO DAILY 08/07/14 11/24/18 Dextroamphetamine/Amphetamine 20 mg PO BID 08/07/14 11/24/18 [Adderall] Divalproex [Depakote] 500 mg PO BID 08/07/14 11/24/18 HYDROcodone/APAP 5-325MG [[place] 1 tab PO DAILY PRN 08/07/14 11/24/18 5-325] Potassium Chloride 8 meq PO DAILY 08/07/14 11/24/18 Simvastatin [Zocor] 80 mg PO HS 08/07/14 11/24/18 cloNIDine HCL [Catapres] 0.2 mg PO BID 08/07/14 11/24/18 Baclofen [Lioresal] 10 mg PO TID PRN 12/10/16 11/24/18 DULoxetine HCL [Cymbalta] 60 mg PO BID 12/10/16 11/24/18 Chlorthalidone [Hygroton] 25 mg PO DAILY 10/31/18 11/24/18 Glimepiride [Amaryl] 4 mg PO BID 10/31/18 11/24/18 Levothyroxine Sodium [Synthroid] 50 mcg PO MOTUWETHFRSA 10/31/18 11/24/18 QUEtiapine FUMARATE [SEROquel] 300 mg PO HS 10/31/18 11/24/18 metFORMIN HCL 1,000 mg PO BID 10/31/18 11/24/18 Albuterol Nebulized [Ventolin 2.5 mg INHALATION RT-QID 11/24/18 11/24/18 Nebulized] Aspirin EC [Ecotrin Low Dose] 81 mg PO DAILY 11/24/18 11/24/18 Ergocalciferol [Vitamin D2] 50,000 unit PO Q14D 11/24/18 11/24/18 Nystatin [Nystop] 1 applic TOPICAL QID 11/24/18 11/24/18 Previous Rx's Medication Instructions Recorded Albuterol Sulfate [Proair Hfa] 1 - 2 puff INHALATION Q4HR PRN #1 12/13/18 inhaler Azithromycin [Zithromax Z-pack] 0 mg PO DIRECTED #1 pack 12/13/18 predniSONE 50 mg PO DAILY #5 tab 12/13/18 Allergies Allergy/AdvReac Type Severity Reaction Status Date / Time Sulfa (Sulfonamide Allergy Unknown Verified 12/13/18 22:14 Antibiotics) Review of Systems ROS Statement: Those systems with pertinent positive or pertinent negative responses have been documented in the HPI. ROS Other: All systems not noted in ROS Statement are negative. Past Medical History Past Medical History: Diabetes Mellitus, GERD/Reflux, Hyperlipidemia, Hypertension, Memory Impairment History of Any Multi-Drug Resistant Organisms: None Reported Past Surgical History: Adenoidectomy, Tonsillectomy Additional Past Surgical History / Comment(s): d & c Past Anesthesia/Blood Transfusion Reactions: Previous Problems w/ Anesthesia Additional Past Anesthesia/Blood Transfusion Reaction / Comment(s): hard to wake patient up. Past Psychological History: ADD/ADHD, Anxiety, Bipolar, Depression, Panic Disorder, PTSD Smoking Status: Current every day smoker Past Alcohol Use History: Occasional Past Drug Use History: None Reported - Past Family History Father Family Medical History: Diabetes Mellitus, Hyperlipidemia, Hypertension Mother Additional Family Medical History / Comment(s): alcoholism, psych history General Exam Limitations: no limitations General appearance: alert, in no apparent distress Head exam: Present: atraumatic, normocephalic, normal inspection Eye exam: Present: normal appearance, PERRL, EOMI. Absent: scleral icterus, conjunctival injection, periorbital swelling ENT exam: Present: normal exam, normal oropharynx, mucous membranes moist Neck exam: Present: normal inspection, full ROM. Absent: tenderness, meningismus, lymphadenopathy Respiratory exam: Present: wheezes. Absent: normal lung sounds bilaterally, respiratory distress, rales, rhonchi, stridor Cardiovascular Exam: Present: normal rhythm, tachycardia, normal heart sounds. Absent: systolic murmur, diastolic murmur, rubs, gallop, clicks Extremities exam: Present: pedal edema Neurological exam: Present: alert, oriented X3, CN II-XII intact Skin exam: Present: warm, dry, intact, normal color. Absent: rash Course Vital Signs 12/13/18 12/13/18 22:11 22:22 Temperature 97.7 F Pulse Rate 118 H Respiratory 24 20 Rate Blood Pressure 151/76 O2 Sat by Pulse 96 Oximetry Medical Decision Making - Medical Decision Making Chest x-ray is unremarkable. Patient notable wheezing did have improvement after DuoNeb treatment. Patient be discharged with inhaler, steroids, antibiotics. Return parameters were discussed. Disposition Clinical Impression: Acute bronchitis with bronchospasm Disposition: HOME SELF-CARE Condition: Stable Instructions (If sedation given, give patient instructions): Acute Bronchitis (ED), Bronchospasm (ED) Additional Instructions: Please return to the Emergency Department if symptoms worsen or any other concerns. Prescriptions: predniSONE 50 mg PO DAILY #5 tab Albuterol Sulfate [Proair Hfa] 1 - 2 puff INHALATION Q4HR PRN #1 inhaler PRN Reason: difficulty in breathing Azithromycin [Zithromax Z-pack] 0 mg PO DIRECTED #1 pack Is patient prescribed a controlled substance at d/c from ED?: No Referrals: Isacc Gongora MD [Primary Care Provider] - 1-2 days Time of Disposition: 23:23
--- NOTE | 2018-12-13 23:17 | XR ---
EXAMINATION TYPE: XR chest 2V DATE OF EXAM: 12/13/2018 COMPARISON: 12/15/2016 HISTORY: Cough TECHNIQUE: Frontal and lateral views of the chest are obtained. FINDINGS: Heart and mediastinum are normal. Lungs are clear. Diaphragm is normal. Bony thorax appear s normal. IMPRESSION: Normal chest. No change.
[2018-12-13] MEDS ORDERED: methylPREDNISolone SOD SUCCI 125 MG/2 ML VIAL IM ONE (23:23)
[2018-12-13 23:25] VITALS: RESP 18
[2018-12-13 23:37] VITALS: PULSE 76
== END 2018-12-13 23:47 | disposition home or self-care (01) ==
LOC: EC 22:09
DX: J20.9 Acute bronchitis, unspecified (principal); E11.9 Type 2 diabetes mellitus without complications; K21.9 Gastro-esophageal reflux disease without esophagitis; E78.5 Hyperlipidemia, unspecified; I10 Essential (primary) hypertension; F90.9 Attention-deficit hyperactivity disorder, unspecified type; F41.9 Anxiety disorder, unspecified; F31.9 Bipolar disorder, unspecified; F17.200 Nicotine dependence, unspecified, uncomplicated; Z79.82 Long term (current) use of aspirin; Z79.84 Long term (current) use of oral hypoglycemic drugs; Z79.899 Other long term (current) drug therapy; Z79.890 Hormone replacement therapy; Z79.51 Long term (current) use of inhaled steroids; Z88.2 Allergy status to sulfonamides; Z87.09 Personal history of other diseases of the respiratory system
CPT/HCPCS: 94640; 71046; 99285; 96372; J2930

== ENCOUNTER → 2018-12-20 | Outpatient (CLI) | payer OTHER ==
--- NOTE | 2018-12-20 08:55 | MM ---
Reason for exam: screening (asymptomatic). Baseline mammogram. History: Patient is postmenopausal. Family history of breast cancer in mother at age 62. Physical Findings: Nurse did not find any significant physical abnormalities on exam. MG Screening Mammo w CAD Bilateral CC and MLO view(s) were taken. There are scattered fibroglandular densities. There are two groups of right upper outer quadrant middle depth calcifications, magnification views will be performed. No suspicious abnormality in the left breast. These results were verbally communicated with the patient and result sheet given to the patient on 12/20/18. ASSESSMENT: Incomplete: need additional imaging evaluation, BI-RAD 0 RECOMMENDATION: Special view mammogram of the right breast.
--- NOTE | 2018-12-20 08:59 | MM ---
Reason for exam: additional evaluation requested from abnormal screening. History: Patient is postmenopausal. Family history of breast cancer in mother at age 62. Physical Findings: Breast exam preformed at baseline screening. MG Work Up Mamm w CAD RT CC with magnification, LM with magnification, and LM view(s) were taken of the right breast. There are scattered fibroglandular densities. There are two heterogeneous right upper outer quadrant middle depth groups of calcifications. The more posterior is 6mm and more anterior is 3mm. Biopsy is recommended of the larger group with recommendation of the second group to be made on biopsy result of the larger group. These results were verbally communicated with the patient and result sheet given to the patient on 12/20/18. ASSESSMENT: Suspicious, BI-RAD 4 RECOMMENDATION: Stereotactic core biopsy of the right breast. Called office with mammographic findings and has scheduled an appointment for the patient for 12/20/18 at 11:[address] Parker. PRELIMINARY REPORT CALLED AND FAXED TO DR. PARKER ON 12/20/18.
--- NOTE | 2018-12-20 10:26 | BD ---
EXAMINATION TYPE: Axial Bone Density DATE OF EXAM: 12/20/2018 COMPARISON: NONE CLINICAL HISTORY: Z 78.0 Height: 198 pounds Weight: 63 inches FRAX RISK QUESTIONS: Alcohol (3 or more units per day): no Family History (Parent hip fracture): no Glucocorticoids (More than 3mos): no (Ex: prednisone, prednisolone, methylprednisolone, dexamethasone, and hydrocortisone). History of Fracture in Adulthood: no Secondary Osteoporosis: 1. Type 1 Diabetes: no 2. Hyperthyroidism: no 3. Menopause before 45: no 4. Malnutrition: no 5. Chronic liver disease: no Rheumatoid Arthritis: no Current Tobacco Use: yes RISK FACTORS HISTORY OF: Family History of Osteoporosis: no Active: yes Diet low in dairy products/other sources of calcium: no Postmenopausal woman: yes Take estrogen and/or progesterone medications: no Lost more than 2 inches in height since high school: no Frequent falls: no Poor Health: no Hyperparathyroidism: no Adrenal Insufficiency: no MEDICATIONS: Prednisone or other steroids: no Thyroid Medications: yes Which medication: synthroid How Long: one month...just started Osteoporosis Medications: no Additional Medications: Metformin ; blood pressure med, cholesterol med Additional History: type 2 diabetic EXAM MEASUREMENTS: Bone mineral densitometry was performed using the Nitronex System. Bone mineral density as measured about the Lumbar spine is: ----- L1-L4(G/cm2): 1.282 T Score Values are as follows: ----- L2: 1.2 ----- L3: 0.2 ----- L4: 0.5 ----- L1-L4: 0.9 Bone mineral density BASELINE Bone mineral density about the R hip (g/cm2): 0.898 Bone mineral density about the L hip (g/cm2): 0.912 T Score values are as follows: -----R Neck: -1.0 -----L Neck: -0.9 -----R Total: 0.2 -----L Total: 1.0 Bone mineral density BASELINE IMPRESSION: Normal (Values between +1 and -1 indicate normal bone mass). Values approach osteopenia regards to t he right femoral neck. Consider repeating this study in 5 years or sooner if there is some new clinic al indication. NOTE: T-SCORE=SD OF THE YOUNG ADULT MEAN.
== END | disposition home or self-care (01) ==
LOC: RADMAMWWP 07:28
PROVIDERS: ATTEND Family Medicine
DX: Z12.31 Encounter for screening mammogram for malignant neoplasm of breast (principal); R92.8 Other abnormal and inconclusive findings on diagnostic imaging of breast; Z78.0 Asymptomatic menopausal state
CPT/HCPCS: 77065; 77067; 77080

== ENCOUNTER 2018-12-24 01:58 | Emergency (ER) | payer OTHER ==
[2018-12-24 01:14] VITALS: RESP 18
--- NOTE | 2018-12-24 01:51 | XR ---
EXAMINATION TYPE: XR foot complete RT DATE OF EXAM: 12/24/2018 COMPARISON: NONE HISTORY: Little toe infection TECHNIQUE: 3 views FINDINGS: There is large plantar calcaneal spur. Metatarsals are intact. I see no fracture nor disloc ation. There are no erosions. IMPRESSION: Calcaneal spurring. No fracture. No evidence of osteomyelitis in the little toe.
--- NOTE | 2018-12-24 01:56 | ED ---
General Adult HPI - General Chief complaint: Extremity Problem,Nontraumatic Stated complaint: R Toe Purple- Diabetic Time Seen by Provider: 12/24/18 01:15 EST Source: patient, RN notes reviewed, old records reviewed Mode of arrival: ambulatory Limitations: no limitations - History of Present Illness Initial comments: 53-year-old female patient presents to ED chief complaint of redness and pain to her little toe right foot. Patient reports this began today. Patient is a type II diabetic, checks her feet daily. Denies any other complaints. Denies any systemic complaints of infection. Systemic: Pt denies fatigue, fever/chills, rash. Pt denies weakness, night sweats, weight loss. Neuro: Pt denies headache, visual disturbances, syncope or pre-syncope. HEENT: Pt denies ocular discharge or irritation, otalgia, rhinorrhea, pharyngitis or notable lymphadenopathy. Cardiopulmonary: Pt denies chest pain, SOB, heart palpitations, dyspnea on exertion. Abdominal/GI: Pt denies abdominal pain, n/v/d. : Pt denies dysuria, burning w/ urination, frequency/urgency. Denies new onset urinary or bowel incontinence. MSK: Pt denies myalgia, loss of strength or function in extremities. Neuro: Pt denies new onset weakness, paresthesias. - Related Data Home Medications Medication Instructions Recorded Confirmed Aspirin 81 mg PO DAILY 08/07/14 11/24/18 Dextroamphetamine/Amphetamine 20 mg PO BID 08/07/14 11/24/18 [Adderall] Divalproex [Depakote] 500 mg PO BID 08/07/14 11/24/18 HYDROcodone/APAP 5-325MG [[place] 1 tab PO DAILY PRN 08/07/14 11/24/18 5-325] Potassium Chloride 8 meq PO DAILY 08/07/14 11/24/18 Simvastatin [Zocor] 80 mg PO HS 08/07/14 11/24/18 cloNIDine HCL [Catapres] 0.2 mg PO BID 08/07/14 11/24/18 Baclofen [Lioresal] 10 mg PO TID PRN 12/10/16 11/24/18 DULoxetine HCL [Cymbalta] 60 mg PO BID 12/10/16 11/24/18 Chlorthalidone [Hygroton] 25 mg PO DAILY 10/31/18 11/24/18 Glimepiride [Amaryl] 4 mg PO BID 10/31/18 11/24/18 Levothyroxine Sodium [Synthroid] 50 mcg PO MOTUWETHFRSA 10/31/18 11/24/18 QUEtiapine FUMARATE [SEROquel] 300 mg PO HS 10/31/18 11/24/18 metFORMIN HCL 1,000 mg PO BID 10/31/18 11/24/18 Albuterol Nebulized [Ventolin 2.5 mg INHALATION RT-QID 11/24/18 11/24/18 Nebulized] Aspirin EC [Ecotrin Low Dose] 81 mg PO DAILY 11/24/18 11/24/18 Ergocalciferol [Vitamin D2] 50,000 unit PO Q14D 11/24/18 11/24/18 Nystatin [Nystop] 1 applic TOPICAL QID 11/24/18 11/24/18 Previous Rx's Medication Instructions Recorded Albuterol Sulfate [Proair Hfa] 1 - 2 puff INHALATION Q4HR PRN #1 12/13/18 inhaler Azithromycin [Zithromax Z-pack] 0 mg PO DIRECTED #1 pack 12/13/18 predniSONE 50 mg PO DAILY #5 tab 12/13/18 Cephalexin [Keflex] 500 mg PO Q6HR 14 Days #64 cap 12/24/18 Allergies Allergy/AdvReac Type Severity Reaction Status Date / Time Sulfa (Sulfonamide Allergy Unknown Verified 12/24/18 01:14 EST Antibiotics) Review of Systems ROS Statement: Those systems with pertinent positive or pertinent negative responses have been documented in the HPI. ROS Other: All systems not noted in ROS Statement are negative. Past Medical History Past Medical History: Diabetes Mellitus, GERD/Reflux, Hyperlipidemia, Hypertension, Memory Impairment History of Any Multi-Drug Resistant Organisms: None Reported Past Surgical History: Adenoidectomy, Tonsillectomy Additional Past Surgical History / Comment(s): d & c Past Anesthesia/Blood Transfusion Reactions: Previous Problems w/ Anesthesia Additional Past Anesthesia/Blood Transfusion Reaction / Comment(s): hard to wake patient up. Past Psychological History: ADD/ADHD, Anxiety, Bipolar, Depression, Panic Disorder, PTSD Smoking Status: Current every day smoker Past Alcohol Use History: Occasional Past Drug Use History: None Reported - Past Family History Father Family Medical History: Diabetes Mellitus, Hyperlipidemia, Hypertension Mother Additional Family Medical History / Comment(s): alcoholism, psych history General Exam - General Exam Comments Initial Comments: Constitutional: NAD, AOX3, Pt has pleasant affect. HEENT: NC/AT, trachea midline, neck supple, no lymphadenopathy. Posterior pharynx non erythematous, without exudates. External ears appear normal, without discharge. Mucous membranes moist. Eyes PERRLA, EOM intact. There is no scleral icterus. No pallor noted. Cardiopulmonary: RRR, no murmurs, rubs or gallops, no JVD noted. Lungs CTAB in anterior and posterior aguirre. No peripheral edema. Abdominal exam: Abdomen soft and non-distended. Abdomen non-tender to palpation in all 4 quadrants. Bowel sounds active in LLQ. No hepatosplenomegaly. No ecchymosis Neuro: CN II-XII grossly intact. No nuchal rigidity. No raccon eyes, no reynolds sign, no hemotympanum. No cervical spinal tenderness. MSK: Little toe right foot mildly erythematous, mildly tender. No fluctuance, no drainage, no streaking. No posterior calf tenderness bilaterally, homans sign negative bilaterally. Posterior tibialis and radial pulse +2 bilaterally. Sensation intact in upper and lower extremities. Full active ROM in upper and lower extremities, 5/5 stregnth. Limitations: no limitations Course Vital Signs 12/24/18 01:12 EST Temperature 98.7 F Pulse Rate 114 H Respiratory 18 Rate Blood Pressure 143/74 O2 Sat by Pulse 96 Oximetry Medical Decision Making - Medical Decision Making 53-year-old female patient presents to ED chief complaint of diabetic foot infection. Patient vital signs stable, afebrile. Physical exam displayed erythema, tenderness to right little toe, no fluctuance, no streaking, no discharge. Plain film was negative. Patient will be discharged on Keflex. Has sulfa ALLERGY. We'll have close follow-up with primary care) and return precautions. Case discussed with Dr. Parada. Disposition Clinical Impression: Diabetic foot infection Disposition: HOME SELF-CARE Condition: Stable Instructions (If sedation given, give patient instructions): Diabetic Foot Ulcers (ED) Additional Instructions: Patient to adhere to previously discussed treatment plan and will take medication(s) as directed. Patient to follow up with PCP in 1-2 days. Patient to return to ED if symptoms do not improve. Take medication as directed. Follow-up with primary care provider on Tuesday. Return to ER if condition worsens. Prescriptions: Cephalexin [Keflex] 500 mg PO Q6HR 14 Days #64 cap Is patient prescribed a controlled substance at d/c from ED?: No Referrals: Isacc Gongora MD [Primary Care Provider] - 1-2 days
[~2018-12-24 01:58] MED LIST: CEPHALEXIN 500 MG CAP PO STA; CEPHALEXIN 500MG STARTER PACK 4 CAP BTL PO STA
[2018-12-24] MEDS ORDERED: IBUPROFEN 600 MG TAB PO STA (02:12)
[2018-12-24 02:23] VITALS: BP 146/76; PULSE 80; TEMP 98
== END 2018-12-24 02:22 | disposition home or self-care (01) ==
LOC: EC 01:58
DX: E11.628 Type 2 diabetes mellitus with other skin complications (principal); L08.9 Local infection of the skin and subcutaneous tissue, unspecified; E78.5 Hyperlipidemia, unspecified; I10 Essential (primary) hypertension; F90.9 Attention-deficit hyperactivity disorder, unspecified type; F41.0 Panic disorder [episodic paroxysmal anxiety]; F31.9 Bipolar disorder, unspecified; Z88.2 Allergy status to sulfonamides; F17.200 Nicotine dependence, unspecified, uncomplicated; Z79.82 Long term (current) use of aspirin; Z79.84 Long term (current) use of oral hypoglycemic drugs; Z79.890 Hormone replacement therapy; Z79.899 Other long term (current) drug therapy; Z83.3 Family history of diabetes mellitus
CPT/HCPCS: 99284

== ENCOUNTER 2019-01-12 23:02 | Emergency (ER) | payer OTHER ==
[2019-01-12 23:08] VITALS: RESP 18
[2019-01-12 23:09] LABS: Glucose,Whole Blood 418 mg/dL (75-99)
[2019-01-12] MEDS ORDERED: ONDANSETRON 4 MG/2 ML VIAL IVP STA (23:16)
[2019-01-12] MEDS ORDERED: SODIUM CHLORIDE 0.9% 2,000 ML IV STA (23:16)
[2019-01-12] MEDS ORDERED: INSULIN REGULAR 100 UNIT/ML VIAL IV STA (23:17)
--- NOTE | 2019-01-12 23:24 | ED ---
General Adult HPI - General Chief complaint: Recheck/Abnormal Lab/Rx Stated complaint: hyperglycemia Time Seen by Provider: 01/12/19 23:05 Source: EMS Mode of arrival: EMS Limitations: no limitations - History of Present Illness Initial comments: This patient is 53-year-old woman who presents to be evaluate for nausea and vomiting. Patient states that she had 3 episodes of vomiting yesterday afternoon/evening, and then 2 episodes of vomiting over the course of today. She also has had 3 bowel movements she is describing as diarrhea. The patient is not seeing any blood or coffee-ground emesis. She is not having any blood or dark tarry stools. She has had a little bit of epigastric cramping that is intermittent and mild. Onset/Timin -: hour(s) Location: abdomen Radiation: non-radiation Quality: other (Cramping) Consistency: intermittent Improves with: none Worsens with: none Associated Symptoms: nausea/vomiting Treatments Prior to Arrival: none - Related Data Home Medications Medication Instructions Recorded Confirmed Aspirin 81 mg PO DAILY 08/07/14 11/24/18 Dextroamphetamine/Amphetamine 20 mg PO BID 08/07/14 11/24/18 [Adderall] Divalproex [Depakote] 500 mg PO BID 08/07/14 11/24/18 HYDROcodone/APAP 5-325MG [[place] 1 tab PO DAILY PRN 08/07/14 11/24/18 5-325] Potassium Chloride 8 meq PO DAILY 08/07/14 11/24/18 Simvastatin [Zocor] 80 mg PO HS 08/07/14 11/24/18 cloNIDine HCL [Catapres] 0.2 mg PO BID 08/07/14 11/24/18 Baclofen [Lioresal] 10 mg PO TID PRN 12/10/16 11/24/18 DULoxetine HCL [Cymbalta] 60 mg PO BID 12/10/16 11/24/18 Chlorthalidone [Hygroton] 25 mg PO DAILY 10/31/18 11/24/18 Glimepiride [Amaryl] 4 mg PO BID 10/31/18 11/24/18 Levothyroxine Sodium [Synthroid] 50 mcg PO MOTUWETHFRSA 10/31/18 11/24/18 QUEtiapine FUMARATE [SEROquel] 300 mg PO HS 10/31/18 11/24/18 metFORMIN HCL 1,000 mg PO BID 10/31/18 11/24/18 Albuterol Nebulized [Ventolin 2.5 mg INHALATION RT-QID 11/24/18 11/24/18 Nebulized] Aspirin EC [Ecotrin Low Dose] 81 mg PO DAILY 11/24/18 11/24/18 Ergocalciferol [Vitamin D2] 50,000 unit PO Q14D 11/24/18 11/24/18 Nystatin [Nystop] 1 applic TOPICAL QID 11/24/18 11/24/18 Previous Rx's Medication Instructions Recorded Albuterol Sulfate [Proair Hfa] 1 - 2 puff INHALATION Q4HR PRN #1 12/13/18 inhaler Azithromycin [Zithromax Z-pack] 0 mg PO DIRECTED #1 pack 12/13/18 predniSONE 50 mg PO DAILY #5 tab 12/13/18 Cephalexin [Keflex] 500 mg PO Q6HR 14 Days #64 cap 12/24/18 Allergies Allergy/AdvReac Type Severity Reaction Status Date / Time Sulfa (Sulfonamide Allergy Unknown Verified 12/24/18 01:14 EST Antibiotics) Review of Systems ROS Statement: Those systems with pertinent positive or pertinent negative responses have been documented in the HPI. ROS Other: All systems not noted in ROS Statement are negative. Constitutional: Denies: fever, chills Cardiovascular: Denies: chest pain, palpitations, edema, syncope Gastrointestinal: Reports: as per HPI, abdominal pain, nausea, vomiting, diarrhea. Denies: constipation, hematemesis, melena, hematochezia Genitourinary: Denies: dysuria, frequency, hematuria Musculoskeletal: Denies: back pain Skin: Denies: rash Neurological: Denies: headache, weakness, numbness Past Medical History Past Medical History: Diabetes Mellitus, GERD/Reflux, Hyperlipidemia, Hypertension, Memory Impairment History of Any Multi-Drug Resistant Organisms: None Reported Past Surgical History: Adenoidectomy, Tonsillectomy Additional Past Surgical History / Comment(s): d & c Past Anesthesia/Blood Transfusion Reactions: Previous Problems w/ Anesthesia Additional Past Anesthesia/Blood Transfusion Reaction / Comment(s): hard to wake patient up. Past Psychological History: ADD/ADHD, Anxiety, Bipolar, Depression, Panic Disor nik, PTSD Smoking Status: Current every day smoker Past Alcohol Use History: Occasional Past Drug Use History: None Reported - Past Family History Father Family Medical History: Diabetes Mellitus, Hyperlipidemia, Hypertension Mother Additional Family Medical History / Comment(s): alcoholism, psych history General Exam Limitations: no limitations General appearance: alert, in no apparent distress Head exam: Present: atraumatic, normocephalic Eye exam: Present: normal appearance. Absent: scleral icterus, conjunctival i njection ENT exam: Present: mucous membranes dry Respiratory exam: Present: normal lung sounds bilaterally. Absent: respiratory distress, wheezes, rales, rhonchi, stridor Cardiovascular Exam: Present: regular rate, normal rhythm, normal heart sounds. Absent: systolic murmur, diastolic murmur, rubs, gallop GI/Abdominal exam: Present: soft. Absent: distended, tenderness, guarding, rebound, rigid, mass Extremities exam: Present: normal inspection, normal capillary refill. Absent: pedal edema, calf tenderness Back exam: Present: normal inspection. Absent: CVA tenderness (R), CVA tenderness (L) Neurological exam: Present: alert, oriented X3 Skin exam: Present: warm, dry, intact, normal color. Absent: rash Course Vital Signs 01/12/19 23:04 Temperature 98.7 F Pulse Rate 94 Respiratory 18 Rate Blood Pressure 124/77 O2 Sat by Pulse 96 Oximetry Medical Decision Making - Lab Data Result diagrams: 01/12/19 23:11 01/12/19 23:11 Lab Results 01/12/19 01/12/19 01/12/19 Range/Units 23:06 23:11 23:11 WBC 9.7 (3.8-10.6) k/uL RBC 3.61 L (3.80-5.40) m/uL Hgb 12.0 (11.4-16.0) gm/dL Hct 34.1 (34.0-46.0) % MCV 94.5 (80.0-100.0) fL MCH 33.2 (25.0-35.0) pg MCHC 35.2 (31.0-37.0) g/dL RDW 13.4 (11.5-15.5) % Plt Count 292 (150-450) k/uL Neutrophils % 77 % Lymphocytes % 14 % Monocytes % 6 % Eosinophils % 2 % Basophils % 1 % Neutrophils # 7.4 (1.3-7.7) k/uL Lymphocytes # 1.4 (1.0-4.8) k/uL Monocytes # 0.6 (0-1.0) k/uL Eosinophils # 0.2 (0-0.7) k/uL Basophils # 0.1 (0-0.2) k/uL Sodium 137 (137-145) mmol/L Potassium 3.9 (3.5-5.1) mmol/L Chloride 100 (98-107) mmol/L Carbon Dioxide 25 (22-30) mmol/L Anion Gap 12 mmol/L BUN 36 H (7-17) mg/dL Creatinine 0.63 (0.52-1.04) mg/dL Est GFR (CKD-EPI)AfAm >90 (>60 ml/min/1.73 sqM) Est GFR (CKD-EPI)NonAf >90 (>60 ml/min/1.73 sqM) Glucose 372 H (74-99) mg/dL POC Glucose (mg/dL) 418 H (75-99) mg/dL POC Glu Public Address System Installer Jazmine Ferrell Calcium 9.2 (8.4-10.2) mg/dL Total Bilirubin 0.3 (0.2-1.3) mg/dL AST 19 (14-36) U/L ALT 20 (9-52) U/L Alkaline Phosphatase 85 (38-126) U/L Total Protein 6.2 L (6.3-8.2) g/dL Albumin 3.7 (3.5-5.0) g/dL Amylase 39 (30-110) U/L Lipase 224 (23-300) U/L Urine Color Urine Appearance (Clear) Urine pH (5.0-8.0) Ur Specific [place] (1.001-1.035) Urine Protein (Negative) Urine Glucose (UA) (Negative) Urine Ketones (Negative) Urine Blood (Negative) Urine Nitrite (Negative) Urine Bilirubin (Negative) Urine Urobilinogen (<2.0) mg/dL Ur Leukocyte Esterase (Negative) Urine RBC (0-5) /hpf Urine WBC (0-5) /hpf Ur Squamous Epith Cells (0-4) /hpf Urine Bacteria (None) /hpf 01/13/19 01/13/19 01/13/19 Range/Units 00:19 01:05 01:12 WBC (3.8-10.6) k/uL RBC (3.80-5.40) m/uL Hgb (11.4-16.0) gm/dL Hct (34.0-46.0) % MCV (80.0-100.0) fL MCH (25.0-35.0) pg MCHC (31.0-37.0) g/dL RDW (11.5-15.5) % Plt Count (150-450) k/uL Neutrophils % % Lymphocytes % % Monocytes % % Eosinophils % % Basophils % % Neutrophils # (1.3-7.7) k/uL Lymphocytes # (1.0-4.8) k/uL Monocytes # (0-1.0) k/uL Eosinophils # (0-0.7) k/uL Basophils # (0-0.2) k/uL Sodium (137-145) mmol/L Potassium (3.5-5.1) mmol/L Chloride (98-107) mmol/L Carbon Dioxide (22-30) mmol/L Anion Gap mmol/L BUN (7-17) mg/dL Creatinine (0.52-1.04) mg/dL Est GFR (CKD-EPI)AfAm (>60 ml/min/1.73 sqM) Est GFR (CKD-EPI)NonAf (>60 ml/min/1.73 sqM) Glucose (74-99) mg/dL POC Glucose (mg/dL) 202 H 249 H (75-99) mg/dL POC Glu Public Address System Installer ID Lenora Glover Taylor Calcium (8.4-10.2) mg/dL Total Bilirubin (0.2-1.3) mg/dL AST (14-36) U/L ALT (9-52) U/L Alkaline Phosphatase (38-126) U/L Total Protein (6.3-8.2) g/dL Albumin (3.5-5.0) g/dL Amylase (30-110) U/L Lipase (23-300) U/L Urine Color Light Yellow Urine Appearance Clear (Clear) Urine pH 5.5 (5.0-8.0) Ur Specific [place] 1.009 (1.001-1.035) Urine Protein Trace H (Negative) Urine Glucose (UA) 4+ H (Negative) Urine Ketones Negative (Negative) Urine Blood Trace H (Negative) Urine Nitrite Negative (Negative) Urine Bilirubin Negative (Negative) Urine Urobilinogen <2.0 (<2.0) mg/dL Ur Leukocyte Esterase Moderate H (Negative) Urine RBC 3 (0-5) /hpf Urine WBC 74 H (0-5) /hpf Ur Squamous Epith Cells <1 (0-4) /hpf Urine Bacteria Occasional H (None) /hpf Disposition Clinical Impression: Hyperglycemia, Vomiting Disposition: HOME SELF-CARE Condition: Good Instructions (If sedation given, give patient instructions): Diabetic Hyperglycemia (ED), Acute Nausea and Vomiting (ED) Is patient prescribed a controlled substance at d/c from ED?: No Referrals: Isacc Gongora MD [Primary Care Provider] - 1-2 days
[2019-01-12 23:26] LABS: Basophils # (A) 0.1 k/uL (0-0.2); Basophils % (A) 1 %; Eosinophils # (A) 0.2 k/uL (0-0.7); Eosinophils % (A) 2 %; HCT 34.1 % (34.0-46.0); Lymphocytes # (A) 1.4 k/uL (1.0-4.8); Lymphocytes % (A) 14 %; MCH 33.2 pg (25.0-35.0); MCHC 35.2 g/dL (31.0-37.0); MCV 94.5 fL (80.0-100.0); Mean Platelet Volume 6.1; Monocytes # (A) 0.6 k/uL (0-1.0); Monocytes % (A) 6 %; Neutrophils # (A) 7.4 k/uL (1.3-7.7); Neutrophils % (A) 77 %; Platelet Count 292 k/uL (150-450); RBC 3.61 m/uL (3.80-5.40); RDW 13.4 % (11.5-15.5); WBC 9.7 k/uL (3.8-10.6)
[2019-01-12 23:35] LABS: ALT 20 U/L (9-52); AST 19 U/L (14-36); African American GFR (CKD) >90 (>60 ml/min/1.73 sqM); Albumin 3.7 g/dL (3.5-5.0); Alkaline Phosphatase 85 U/L (38-126); Amylase 39 U/L (30-110); Anion Gap 12 mmol/L; Blood Urea Nitrogen 36 mg/dL (7-17); Calcium 9.2 mg/dL (8.4-10.2); Carbon Dioxide 25 mmol/L (22-30); Chloride 100 mmol/L (98-107); Glucose 372 mg/dL (74-99); Non-African American GFR(CKD) >90 (>60 ml/min/1.73 sqM); Potassium 3.9 mmol/L (3.5-5.1); Sodium 137 mmol/L (137-145); Total Bilirubin 0.3 mg/dL (0.2-1.3); Total Protein 6.2 g/dL (6.3-8.2)
[2019-01-13 00:21] LABS: Glucose,Whole Blood 202 mg/dL (75-99)
[2019-01-13 01:07] LABS: Glucose,Whole Blood 249 mg/dL (75-99)
[2019-01-13 01:24] LABS: Appearance,Urine Clear (Clear); Bacteria,Urine Occasional /hpf; Bilirubin,Urine Negative (Negative); Blood,Urine Trace (Negative); Color,Urine Light Yellow; Glucose,Urine (UA) 4+ (Negative); Ketones,Urine Negative (Negative); Leukocyte Esterase,Urine Moderate (Negative); Nitrite,Urine Negative (Negative); PH, Urine 5.5 (5.0-8.0); Protein,Urine Trace (Negative); RBC,Urine 3 /hpf (0-5); Specific Gravity,Urine 1.009 (1.001-1.035); Squamous Epithelial Cell,Urine <1 /hpf (0-4); Urobilinogen,Urine <2.0 mg/dL (<2.0)
[2019-01-13 01:49] VITALS: BP 112/72; PULSE 90; TEMP 98.4
== END 2019-01-13 01:56 | disposition home or self-care (01) ==
LOC: EC 23:02
DX: E11.65 Type 2 diabetes mellitus with hyperglycemia (principal); R19.7 Diarrhea, unspecified; E78.5 Hyperlipidemia, unspecified; I10 Essential (primary) hypertension; K21.9 Gastro-esophageal reflux disease without esophagitis; F90.9 Attention-deficit hyperactivity disorder, unspecified type; F31.9 Bipolar disorder, unspecified; F41.0 Panic disorder [episodic paroxysmal anxiety]; F17.200 Nicotine dependence, unspecified, uncomplicated; Z88.2 Allergy status to sulfonamides; Z79.82 Long term (current) use of aspirin; Z79.84 Long term (current) use of oral hypoglycemic drugs; Z79.890 Hormone replacement therapy; Z79.899 Other long term (current) drug therapy; Z83.3 Family history of diabetes mellitus
CPT/HCPCS: 36415 ×2; 80053; 82150; 83690; 85025; 81001; 87086; 99285; 96374; 96361 ×2; J2405; 87077; 87186

== ENCOUNTER → 2019-01-26 | Outpatient (CLI) | payer OTHER ==
[2019-01-26 12:24] VITALS: BP 129/70; PULSE 95; RESP 18; TEMP 98
--- NOTE | 2019-01-26 13:00 | P.GSHP ---
History of Present Illness H&P Date: 01/26/19 Chief Complaint: abnormal mammogram right breast Mena is a 54-year-old white female who had a routine screening mammogram performed in November 2018. Additional views of the right breast recommended and this revealed 2 heterogeneous upper outer quadrant middle depth groups of calcifications. The more posterior group was 6 mm and the more anterior was 3 mm. Biopsy was recommended of the larger group with recommendation of the second group to be made after results of the biopsy of the larger group was determined. The patient herself does not feel anything of concern in either breast. At times she does have some discomfort in her breast which is intermittent in nature and is not hurting at the present time. No nipple discharge of concern in the breast. No trauma or infection in the breast. She has over the past 10 years had some discharge from pores on the area on both sides of the breast. She has never been treated for infection. Family history: mother: breast cancer at 63, second primary on the other side Hormonal History: menarche: 12 , 3 midcarrages, breast fed: yes, first born at 18; with one tube and ovary removed menopause: 48 BCP: no, hormones: no Medical History: DM HTN high cholesterol COPD arthritis bipolar anxiety/depressioin PTSD Surgical History: 1. tube and ovary removed 2. tonsils removed 3. gallbladder Social History: smoke: 1/PPD for 43 years alcohol: [age] a severe alcoholic, lst drank labor day drugs: none - Constitutional Constitutional: Denies chills, Denies fever - EENT Eyes: bilateral blurred vision Ears: bilateral: tinnitus Ears, nose, mouth and throat: Denies headache, Denies sore throat - Breasts Breasts: bilateral: as per HPI - Cardiovascular Cardiovascular: Reports high blood pressure - Respiratory Comment: smoker, COPD - Gastrointestinal Gastrointestinal: Reports constipation, Reports diarrhea - Genitourinary (Female) Comment: UTI on cipro Genitourinary: Denies dysuria, Denies hematuria - Menstruation Menstruation: Reports postmenopausal - Musculoskeletal Comment: arthritis - Integumentary Integumentary: Denies pruritus, Denies rash - Neurological Neurological: Reports numbness, Denies weakness - Psychiatric Psychiatric: Reports anxiety - Endocrine Comment: diabetes hypothyroid Endocrine: Reports weight change - Hematologic/Lymphatic Comment: none - Allergic/Immunologic Allergic/Immunologic: Reports as per HPI Past Medical History Past Medical History: Diabetes Mellitus, Hyperlipidemia, Hypertension, Memory Impairment Additional Past Medical History / Comment(s): ectopic 04/1989; cervical polyps 08/2018 History of Any Multi-Drug Resistant Organisms: None Reported Past Surgical History: Cholecystectomy, Tonsillectomy Additional Past Surgical History / Comment(s): d & c 03/1989, ectopic 04/1989 removal of of right tube and ovary; cholecystectomy 06/1989; Past Anesthesia/Blood Transfusion Reactions: Previous Problems w/ Anesthesia Additional Past Anesthesia/Blood Transfusion Reaction / Comment(s): hard to wake patient up. Past Psychological History: ADD/ADHD, Anxiety, Bipolar, Depression, Panic Disorder, PTSD Smoking Status: Current every day smoker Past Alcohol Use History: Occasional Past Drug Use History: None Reported - Past Family History Father Family Medical History: Diabetes Mellitus, Hyperlipidemia, Hypertension Additional Family Medical History / Comment(s): alcoholism, drug addiction Mother Family Medical History: Cancer, COPD, Pneumonia Additional Family Medical History / Comment(s): alcoholism, psych history, right breast cancer Medications and Allergies Home Medications Medication Instructions Recorded Confirmed Type Aspirin 81 mg PO DAILY 08/07/14 01/26/19 History Dextroamphetamine/Amphetamine 20 mg PO BID 08/07/14 01/26/19 History [Adderall] Divalproex [Depakote] 500 mg PO BID 08/07/14 01/26/19 History HYDROcodone/APAP 5-325MG [[place] 1 tab PO DAILY PRN 08/07/14 01/26/19 History 5-325] Potassium Chloride 8 meq PO QAM 08/07/14 01/26/19 History Simvastatin [Zocor] 80 mg PO HS 08/07/14 01/26/19 History cloNIDine HCL [Catapres] 0.2 mg PO BID 08/07/14 01/26/19 History Baclofen [Lioresal] 10 mg PO TID PRN 12/10/16 01/26/19 History DULoxetine HCL [Cymbalta] 60 mg PO BID 12/10/16 01/26/19 History Chlorthalidone [Hygroton] 25 mg PO QAM 10/31/18 01/26/19 History Glimepiride [Amaryl] 4 mg PO BID 10/31/18 01/26/19 History Levothyroxine Sodium [Synthroid] 50 mcg PO QAM 10/31/18 01/26/19 History metFORMIN HCL 1,000 mg PO BID 10/31/18 01/26/19 History Albuterol Nebulized [Ventolin 2.5 mg INHALATION RT-QID 11/24/18 01/26/19 History Nebulized] Ergocalciferol [Vitamin D2] 50,000 unit PO Q14D 11/24/18 01/26/19 History Nystatin [Nystop] 1 applic TOPICAL DAILY PRN 11/24/18 01/26/19 History Albuterol Sulfate [Proair Hfa] 1 - 2 puff INHALATION Q4HR PRN #1 12/13/18 01/26/19 Rx inhaler Allergies Allergy/AdvReac Type Severity Reaction Status Date / Time Sulfa (Sulfonamide Allergy Unknown Verified 01/26/19 12:01 Antibiotics) Surgical - Exam Vital Signs Temp Pulse Resp BP Pulse Ox 98.0 F 95 18 129/70 94 L 01/26/19 12:01 01/26/19 12:01 01/26/19 12:01/26/19 12:01 01/26/19 12:01 BMI 35.6 - General well developed, well nourished, no distress - Eyes normal ocular movement - ENT normal pinna, no hearing loss, no congestion - Neck no masses, trachea midline, no lymphadectomy - Respiratory normal expansion, normal respiratory effort, clear to auscultation - Cardiovascular Rhythm: regular Heart Sounds: normal: S1, S2 - Abdomen Abdomen: soft, non tender, bowel sounds, no guarding, no rigid, no rebound - Integumentary normal turgor - Neurologic no disoriented, no combative - Musculoskeletal normal gait - Psychiatric oriented to time, oriented to person, oriented to place, speech is normal, memory intact breast exam: bra 40D grade 3 ptosis right breast: Positional exam no dominant masses or nodules of concern Right axilla: No adenopathy of concern Left breast: Multi-positional exam no dominant masses or nodules of concern Left axilla: No adenopathy of concern Results Mammogram reviewed Assessment and Plan Assessment: Impression: abnormal mammogram of the right breast DM HTN high cholesterol COPD arthritis bipolar anxiety/depressioin PTSD Plan: 1. stero biopsy of the right breast 2. medical management of medical conditions 3. valium ordered pre-procedure Procedure described to the patient. She understands risks and benefits and wishes to proceed. Encounter 25 minutes, > 50% of time spent in counseling and planning
== END | disposition home or self-care (01) ==
LOC: WWCWWP 11:45
PROVIDERS: ATTEND Surgery
DX: Z53.9 Procedure and treatment not carried out, unspecified reason (principal)

== ENCOUNTER 2019-01-30 20:39 | Emergency (ER) | payer OTHER ==
[2019-01-30 20:42] VITALS: BP 103/64; PULSE 102; RESP 18; TEMP 98.3
--- NOTE | 2019-01-30 21:04 | ED ---
Lower Extremity Injury HPI - General Chief Complaint: Extremity Injury, Lower Stated Complaint: Knee pain Time Seen by Provider: 01/30/19 20:44 Source: patient Mode of arrival: EMS Limitations: no limitations - History of Present Illness Initial Comments: 54-year-old female presenting for 2 months of right knee pain. Patient states that she has had right knee pain since a fall over 2 months ago she states she's had previous negative imaging studies and was told to follow-up with orthopedic surgery she states that at her orthopedic surgery appointment she was told that she had arthritis. Patient states they told her there is nothing they could do. Patient states she was told to take [id number] medications. Patient states the pain is persistent over the anterior/medial aspect of knee. Patient denies posterior knee pain or any swelling. Patient states when she was at the bus stop with her boyfriend he told her that this pain is gone on to long and there must be something several can do about it he called EMS to have patient brought to emergency department for further evaluation of right knee pain 2 months. She states she did fall to left knee due to the pain in the right knee today but state that the left knee is fine and she is able to walk without difficulty on that extremity. Dneies pain in ankle, head injury, or any other complaints. - Related Data Home Medications Medication Instructions Recorded Confirmed Aspirin 81 mg PO DAILY 08/07/14 01/29/19 Dextroamphetamine/Amphetamine 20 mg PO BID 08/07/14 01/29/19 [Adderall] Divalproex [Depakote] 500 mg PO BID 08/07/14 01/29/19 HYDROcodone/APAP 5-325MG [[place] 1 tab PO DAILY PRN 08/07/14 01/29/19 5-325] Potassium Chloride 8 meq PO QAM 08/07/14 01/29/19 Simvastatin [Zocor] 80 mg PO HS 08/07/14 01/29/19 cloNIDine HCL [Catapres] 0.2 mg PO BID 08/07/14 01/29/19 Baclofen [Lioresal] 5 mg PO TID PRN 12/10/16 01/29/19 DULoxetine HCL [Cymbalta] 60 mg PO BID 12/10/16 01/29/19 Chlorthalidone [Hygroton] 25 mg PO QAM 10/31/18 01/29/19 Glimepiride [Amaryl] 4 mg PO BID 10/31/18 01/29/19 Levothyroxine Sodium [Synthroid] 50 mcg PO QAM 10/31/18 01/29/19 metFORMIN HCL 1,000 mg PO BID 10/31/18 01/29/19 Albuterol Nebulized [Ventolin 2.5 mg INHALATION RT-QID 11/24/18 01/29/19 Nebulized] Ergocalciferol [Vitamin D2] 50,000 unit PO Q14D 11/24/18 01/29/19 Previous Rx's Medication Instructions Recorded Albuterol Sulfate [Proair Hfa] 1 - 2 puff INHALATION Q4HR PRN #1 12/13/18 inhaler Allergies Allergy/AdvReac Type Severity Reaction Status Date / Time Sulfa (Sulfonamide Allergy Unknown Verified 01/30/19 20:40 Antibiotics) Review of Systems ROS Statement: Those systems with pertinent positive or pertinent negative responses have been documented in the HPI. ROS Other: All systems not noted in ROS Statement are negative. Past Medical History Past Medical History: Diabetes Mellitus, Hyperlipidemia, Hypertension, Memory Impairment Additional Past Medical History / Comment(s): ectopic 04/1989; cervical polyps 08/2018 History of Any Multi-Drug Resistant Organisms: None Reported Past Surgical History: Cholecystectomy, Tonsillectomy Additional Past Surgical History / Comment(s): d & c 03/1989, ectopic 04/1989 removal of of right tube and ovary; cholecystectomy 06/1989; Past Anesthesia/Blood Transfusion Reactions: Previous Problems w/ Anesthesia Additional Past Anesthesia/Blood Transfusion Reaction / Comment(s): hard to wake patient up. Past Psychological History: ADD/ADHD, Anxiety, Bipolar, Depression, Panic Di sorder, PTSD Smoking Status: Current every day smoker Past Alcohol Use History: Occasional Past Drug Use History: None Reported - Past Family History Father Family Medical History: Diabetes Mellitus, Hyperlipidemia, Hypertension Additional Family Medical History / Comment(s): alcoholism, drug addiction Mother Family Medical History: Cancer, COPD, Pneumonia Additional Family Medical History / Comment(s): alcoholism, psych history General Exam - General Exam Comments Initial Comments: General: The patient is awake and alert, in no distress, and does not appear acutely ill. Eye: Pupils are equal, round and reactive to light, extra-ocular movements are intact. No nystagmus. There is normal conjunctiva bilaterally. No signs of icterus. Cardiovascular: There is a regular rate and rhythm. No murmur, rub or gallop is appreciated. Respiratory: Lungs are clear to auscultation, respirations are non-labored, breath sounds are equal. No wheezes, stridor, rales, or rhonchi. Musculoskeletal: Normal inspection of the knees bilaterally. Is a small abrasion over the left anterior stuart. Normal ROM of the knees bilaterally with tenderness with range of motion at the right knee. No redness or warmth appreciated. No tenderness to palpation of the posterior knee or posterior calf. No swelling noted tenderness to palpation over the anterior aspect of the right knee no tenderness over the left knee that hurts with range of motion of the left knee Strength 5/5 of the lower extremities at the knees bilaterally extensor mechanism intact bilaterally. Sensation intact both proximal and distal to injury site bilaterally. D P pulses equal bilaterally 2+. Neurological: A&O x 3. CN II-XII intact, There are no obvious motor or sensory deficits. Coordination appears grossly intact. Speech is normal. Skin: Skin is warm and dry and no rashes or lesions are noted. Psychiatric: Cooperative, appropriate mood & affect, normal judgment. Limitations: no limitations Course Vital Signs 01/30/19 20:40 Temperature 98.3 F Pulse Rate 102 H Respiratory 18 Rate Blood Pressure 103/64 O2 Sat by Pulse 94 L Oximetry Medical Decision Making - Medical Decision Making 54-year-old female presenting today for chief complaint of right knee pain. Ongoing 2 months. All today however sustain left knee injury refuses imaging studies a left knee stating it does not hurt. Patient states she has had previous negative imaging studies of the right knee. An orthopedic evaluation however the pain is persistent and noticed doing anything about it. Patient was provided pain medications in the emergency department. I do not feel this time given no new right knee injury that she states towards at this time. There is no swelling pain to palpation of the calf or the posterior knee. I recommend th e patient follow up with her primary care provider and obtain outpatient MRI if the positive findings and recommend further orthopedic treatment. Patient is agreeable to this Plan and discharge at this time. Discussed case attending who is agreeable Disposition Clinical Impression: Right knee pain, Right anterior knee pain Disposition: HOME SELF-CARE Condition: Good Instructions (If sedation given, give patient instructions): Knee Pain (ED) Additional Instructions: Please use medication as discussed. Please follow-up with family doctor in the next 2 days, recommend MRI of the knee if positive findings--follow-up with orthopedic surgery for treatment. Please return to emergency room if the symptoms increase or worsen or for any other concerns-swelling of leg. Is patient prescribed a controlled substance at d/c from ED?: No Referrals: Isacc Gongora MD [Primary Care Provider] - 1-2 days Richi William DO [Doctor of Osteopathic Medicine] - 1-2 days Time of Disposition: 21:05
[2019-01-30] MEDS ORDERED: ACET/COD 300 MG/30 MG STARTER PACK 6 TAB BTL PO STA (21:06)
== END 2019-01-30 21:59 | disposition home or self-care (01) ==
LOC: EC 20:39
DX: M25.561 Pain in right knee (principal); E11.9 Type 2 diabetes mellitus without complications; E78.5 Hyperlipidemia, unspecified; I10 Essential (primary) hypertension; F90.9 Attention-deficit hyperactivity disorder, unspecified type; F41.9 Anxiety disorder, unspecified; F32.9 Major depressive disorder, single episode, unspecified; F43.10 Post-traumatic stress disorder, unspecified; F17.200 Nicotine dependence, unspecified, uncomplicated; Z79.82 Long term (current) use of aspirin; Z79.84 Long term (current) use of oral hypoglycemic drugs; Z79.890 Hormone replacement therapy; Z79.899 Other long term (current) drug therapy; Z88.2 Allergy status to sulfonamides; Z53.29 Procedure and treatment not carried out because of patient's decision for other reasons
CPT/HCPCS: 99283

== ENCOUNTER 2019-07-27 22:51 | Observation (INO) | payer OTHER ==
[2019-07-28 00:05] LABS: Basophils # (A) 0.1 k/uL (0-0.2); Basophils % (A) 1 %; Eosinophils # (A) 0.3 k/uL (0-0.7); Eosinophils % (A) 2 %; HCT 40.3 % (34.0-46.0); HGB 13.4 gm/dL (11.4-16.0); Lymphocytes # (A) 2.9 k/uL (1.0-4.8); Lymphocytes % (A) 20 %; MCH 31.1 pg (25.0-35.0); MCHC 33.2 g/dL (31.0-37.0); MCV 93.6 fL (80.0-100.0); Mean Platelet Volume 7.9; Monocytes # (A) 0.7 k/uL (0-1.0); Monocytes % (A) 5 %; Neutrophils # (A) 10.1 k/uL (1.3-7.7); Neutrophils % (A) 71 %; Platelet Count 310 k/uL (150-450); RDW 13.7 % (11.5-15.5); WBC 14.3 k/uL (3.8-10.6)
[2019-07-28 00:14] LABS: ALT 22 U/L (4-34); AST 46 U/L (14-36); Acetaminophen <10.0 ug/mL; African American GFR (CKD) 58 (>60 ml/min/1.73 sqM); Albumin 4.4 g/dL (3.5-5.0); Alcohol <10 mg/dL; Alkaline Phosphatase 100 U/L (38-126); Anion Gap 16 mmol/L; Blood Urea Nitrogen 29 mg/dL (7-17); Calcium 9.9 mg/dL (8.4-10.2); Carbon Dioxide 18 mmol/L (22-30); Chloride 108 mmol/L (98-107); Glucose 179 mg/dL (74-99); Non-African American GFR(CKD) 50 (>60 ml/min/1.73 sqM); Potassium 3.4 mmol/L (3.5-5.1); Salicylate <1.0 mg/dL; Sodium 142 mmol/L (137-145); Total Bilirubin 0.3 mg/dL (0.2-1.3); Total Protein 7.4 g/dL (6.3-8.2)
[2019-07-28 01:02] LABS: Amphetamine Screen,Urine Detected (NotDetected); Barbiturate Screen,Urine Not Detected (NotDetected); Benzodiazepines Screen,Urine Not Detected (NotDetected); Cocaine Screen,Urine Not Detected (NotDetected); Methadone Screen, Urine Not Detected (NotDetected); Opiate Screen,Urine Detected (NotDetected); Oxycodone Screen, Urine Not Detected (NotDetected); Phencyclidine Screen,Urine Not Detected (NotDetected); Tricyclic Antidepressant,Urine Not Detected (NotDetected); Urn Cannabinoid Scrn Not Detected (NotDetected)
[2019-07-28 01:04] LABS: Appearance,Urine Cloudy (Clear); Bacteria,Urine Rare /hpf; Bilirubin,Urine Negative (Negative); Blood,Urine Small (Negative); Cellular Casts,Urine 46 /lpf (0); Color,Urine Yellow; Glucose,Urine (UA) Negative (Negative); Hyaline Casts,Urine 185 /lpf (0-2); Ketones,Urine Trace (Negative); Leukocyte Esterase,Urine Negative (Negative); Mucus,Urine Rare /hpf; Nitrite,Urine Negative (Negative); PH, Urine 5.5 (5.0-8.0); Protein,Urine 1+ (Negative); RBC,Urine 2 /hpf (0-5); Specific Gravity,Urine 1.018 (1.001-1.035); Squamous Epithelial Cell,Urine 3 /hpf (0-4); Urobilinogen,Urine <2.0 mg/dL (<2.0); WBC,Urine 25 /hpf (0-5)
[2019-07-28] MEDS ORDERED: SODIUM CHLORIDE 0.9% 1,000 ML IV ONE (02:27)
--- NOTE | 2019-07-28 02:28 | ED ---
Altered Mental Status HPI - General Chief Complaint: Altered Mental Status Stated Complaint: Mental Health Source: police, EMS Mode of arrival: EMS Limitations: no limitations - History of Present Illness Initial Comments: Mena is a 54-year-old female who is brought to the ER today for evaluation of altered mental status. Apparently the patient was found in her neighbor's ap artment sleeping they attempted to wake her but she was very agitated and not herself. EMS arrived on scene the patient was very agitated and combative. She received 10 mg of Versed she then continued to attempt to fight staff she bit the paramedics. She was given an additional 10 mg of Versed prior to arrival. On arrival the patient is noted to be quite sedated no signs of trauma. - Related Data Home Medications Medication Instructions Recorded Confirmed Aspirin 81 mg PO DAILY 08/07/14 01/29/19 Dextroamphetamine/Amphetamine 20 mg PO BID 08/07/14 01/29/19 [Adderall] Divalproex [Depakote] 500 mg PO BID 08/07/14 01/29/19 HYDROcodone/APAP 5-325MG [[place] 1 tab PO DAILY PRN 08/07/14 01/29/19 5-325] Potassium Chloride 8 meq PO QAM 08/07/14 01/29/19 Simvastatin [Zocor] 80 mg PO HS 08/07/14 01/29/19 cloNIDine HCL [Catapres] 0.2 mg PO BID 08/07/14 01/29/19 Baclofen [Lioresal] 5 mg PO TID PRN 12/10/16 01/29/19 DULoxetine HCL [Cymbalta] 60 mg PO BID 12/10/16 01/29/19 Chlorthalidone [Hygroton] 25 mg PO QAM 10/31/18 01/29/19 Glimepiride [Amaryl] 4 mg PO BID 10/31/18 01/29/19 Levothyroxine Sodium [Synthroid] 50 mcg PO QAM 10/31/18 01/29/19 metFORMIN HCL 1,000 mg PO BID 10/31/18 01/29/19 Albuterol Nebulized [Ventolin 2.5 mg INHALATION RT-QID 11/24/18 01/29/19 Nebulized] Ergocalciferol [Vitamin D2] 50,000 unit PO Q14D 11/24/18 01/29/19 Previous Rx's Medication Instructions Recorded Albuterol Sulfate [Proair Hfa] 1 - 2 puff INHALATION Q4HR PRN #1 12/13/18 inhaler Allergies Allergy/AdvReac Type Severity Reaction Status Date / Time Sulfa (Sulfonamide Allergy Unknown Verified 01/30/19 20:40 Antibiotics) Review of Systems ROS Statement: Those systems with pertinent positive or pertinent negative responses have been documented in the HPI. ROS Other: All systems not noted in ROS Statement are negative. Past Medical History Past Medical History: Diabetes Mellitus, Hyperlipidemia, Hypertension, Memory Impairment Additional Past Medical History / Comment(s): ectopic 04/1989; cervical polyps 08/2018 History of Any Multi-Drug Resistant Organisms: None Reported Past Surgical History: Cholecystectomy, Tonsillectomy Additional Past Surgical History / Comment(s): d & c 03/1989, ectopic 04/1989 removal of of right tube and ovary; cholecystectomy 06/1989; Past Anesthesia/Blood Transfusion Reactions: Previous Problems w/ Anesthesia Additional Past Anesthesia/Blood Transfusion Reaction / Comment(s): hard to wake patient up. Past Psychological History: ADD/ADHD, Anxiety, Bipolar, Depression, Panic Disorder, PTSD Smoking Status: Current every day smoker Past Alcohol Use History: Occasional Past Drug Use History: None Reported - Past Family History Father Family Medical History: Diabetes Mellitus, Hyperlipidemia, Hypertension Additional Family Medical History / Comment(s): alcoholism, drug addiction Mother Family Medical History: Cancer, COPD, Pneumonia Additional Family Medical History / Comment(s): alcoholism, psych history General Exam - General Exam Comments Initial Comments: Physical Exam GENERAL: Patient is well-developed and well-nourished. Patient is nontoxic and well-hydrated and is in no distress. HENT: Normocephalic, Atraumatic. EYES: PERRL, EOMI PULMONARY: Unlabored respirations. Appears to suffer from sleep apnea or obesity hypoventilation syndrome CARDIOVASCULAR: RRR Warm and well perfused extremities ABDOMEN: Non-distended Obese SKIN: No rashes or bruising : Deferred NEUROLOGIC: Sedated but moving all extremities MUSCULOSKELETAL: Moving all extremities with no apparent injury PSYCHIATRIC: Unable to assess Limitations: no limitations Course Vital Signs 07/27/19 07/28/19 07/28/19 23:21 00:25 02:00 Temperature 98.1 F Pulse Rate 122 H 105 H 103 H Respiratory 24 20 20 Rate Blood Pressure 179/78 180/89 164/78 O2 Sat by Pulse 93 L 93 L 95 Oximetry 07/28/19 04:15 Temperature Pulse Rate 96 Respiratory 18 Rate Blood Pressure 120/82 O2 Sat by Pulse 95 Oximetry Medical Decision Making - Medical Decision Making Patient was seen and evaluated history is obtained from EMS patient was unable to provide any history Patient is extremely sedated after apparently being quite combative after being found at her neighbor's apartment Labs were obtained and resulted with mild leukocytosis no other significant abnormalities CT of the brain was unremarkable at this time patient remains somewhat sedated, she does have periods of hypoxia which resolved with oxygen via nasal cannula and repositioning. I suspect she suffers from sleep apnea at baseline. Given the patient's continued sedation we will plan to place her in observation for encephalopathy - Lab Data Result diagrams: 07/27/19 23:15 07/27/19 23:15 Lab Results 07/27/19 07/27/19 07/27/19 Range/Units 00:39 00:39 23:15 WBC 14.3 H (3.8-10.6) k/uL RBC 4.30 (3.80-5.40) m/uL Hgb 13.4 (11.4-16.0) gm/dL Hct 40.3 (34.0-46.0) % MCV 93.6 (80.0-100.0) fL MCH 31.1 (25.0-35.0) pg MCHC 33.2 (31.0-37.0) g/dL RDW 13.7 (11.5-15.5) % Plt Count 310 (150-450) k/uL Neutrophils % 71 % Lymphocytes % 20 % Monocytes % 5 % Eosinophils % 2 % Basophils % 1 % Neutrophils # 10.1 H (1.3-7.7) k/uL Lymphocytes # 2.9 (1.0-4.8) k/uL Monocytes # 0.7 (0-1.0) k/uL Eosinophils # 0.3 (0-0.7) k/uL Basophils # 0.1 (0-0.2) k/uL Sodium (137-145) mmol/L Potassium (3.5-5.1) mmol/L Chloride (98-107) mmol/L Carbon Dioxide (22-30) mmol/L Anion Gap mmol/L BUN (7-17) mg/dL Creatinine (0.52-1.04) mg/dL Est GFR (CKD-EPI)AfAm (>60 ml/min/1.73 sqM) Est GFR (CKD-EPI)NonAf (>60 ml/min/1.73 sqM) Glucose (74-99) mg/dL Calcium (8.4-10.2) mg/dL Total Bilirubin (0.2-1.3) mg/dL AST (14-36) U/L ALT (4-34) U/L Alkaline Phosphatase (38-126) U/L Total Protein (6.3-8.2) g/dL Albumin (3.5-5.0) g/dL Urine Color Yellow Urine Appearance Cloudy H (Clear) Urine pH 5.5 (5.0-8.0) Ur Specific Whitney 1.018 (1.001-1.035) Urine Protein 1+ H (Negative) Urine Glucose (UA) Negative (Negative) Urine Ketones Trace H (Negative) Urine Blood Small H (Negative) Urine Nitrite Negative (Negative) Urine Bilirubin Negative (Negative) Urine Urobilinogen <2.0 (<2.0) mg/dL Ur Leukocyte Esterase Negative (Negative) Urine RBC 2 (0-5) /hpf Urine WBC 25 H (0-5) /hpf Urine WBC Clumps Many H (None) /hpf Ur Squamous Epith Cells 3 (0-4) /hpf Urine Bacteria Rare H (None) /hpf Cellular Casts 46 (0) /lpf Hyaline Casts 185 H (0-2) /lpf Urine Mucus Rare H (None) /hpf Salicylates mg/dL Urine Opiates Screen Detected H (NotDetected) Ur Oxycodone Screen Not Detected (NotDetected) Urine Methadone Screen Not Detected (NotDetected) Ur Propoxyphene Screen Not Detected (NotDetected) Acetaminophen ug/mL Ur Barbiturates Screen Not Detected (NotDetected) U Tricyclic Antidepress Not Detected (NotDetected) Ur Phencyclidine Scrn Not Detected (NotDetected) Ur Amphetamines Screen Detected H (NotDetected) U Methamphetamines Scrn Not Detected (NotDetected) U Benzodiazepines Scrn Not Detected (NotDetected) Urine Cocaine Screen Not Detected (NotDetected) U Marijuana (THC) Screen Not Detected (NotDetected) Serum Alcohol mg/dL 07/27/19 Range/Units 23:15 WBC (3.8-10.6) k/uL RBC (3.80-5.40) m/uL Hgb (11.4-16.0) gm/dL Hct (34.0-46.0) % MCV (80.0-100.0) fL MCH (25.0-35.0) pg MCHC (31.0-37.0) g/dL RDW (11.5-15.5) % Plt Count (150-450) k/uL Neutrophils % % Lymphocytes % % Monocytes % % Eosinophils % % Basophils % % Neutrophils # (1.3-7.7) k/uL Lymphocytes # (1.0-4.8) k/uL Monocytes # (0-1.0) k/uL Eosinophils # (0-0.7) k/uL Basophils # (0-0.2) k/uL Sodium 142 (137-145) mmol/L Potassium 3.4 L (3.5-5.1) mmol/L Chloride 108 H (98-107) mmol/L Carbon Dioxide 18 L (22-30) mmol/L Anion Gap 16 mmol/L BUN 29 H (7-17) mg/dL Creatinine 1.23 H (0.52-1.04) mg/dL Est GFR (CKD-EPI)AfAm 58 (>60 ml/min/1.73 sqM) Est GFR (CKD-EPI)NonAf 50 (>60 ml/min/1.73 sqM) Glucose 179 H (74-99) mg/dL Calcium 9.9 (8.4-10.2) mg/dL Total Bilirubin 0.3 (0.2-1.3) mg/dL AST 46 H (14-36) U/L ALT 22 (4-34) U/L Alkaline Phosphatase 100 (38-126) U/L Total Protein 7.4 (6.3-8.2) g/dL Albumin 4.4 (3.5-5.0) g/dL Urine Color Urine Appearance (Clear) Urine pH (5.0-8.0) Ur Specific Whitney (1.001-1.035) Urine Protein (Negative) Urine Glucose (UA) (Negative) Urine Ketones (Negative) Urine Blood (Negative) Urine Nitrite (Negative) Urine Bilirubin (Negative) Urine Urobilinogen (<2.0) mg/dL Ur Leukocyte Esterase (Negative) Urine RBC (0-5) /hpf Urine WBC (0-5) /hpf Urine WBC Clumps (None) /hpf Ur Squamous Epith Cells (0-4) /hpf Urine Bacteria (None) /hpf Cellular Casts (0) /lpf Hyaline Casts (0-2) /lpf Urine Mucus (None) /hpf Salicylates <1.0 mg/dL Urine Opiates Screen (NotDetected) Ur Oxycodone Screen (NotDetected) Urine Methadone Screen (NotDetected) Ur Propoxyphene Screen (NotDetected) Acetaminophen <10.0 ug/mL Ur Barbiturates Screen (NotDetected) U Tricyclic Antidepress (NotDetected) Ur Phencyclidine Scrn (NotDetected) Ur Amphetamines Screen (NotDetected) U Methamphetamines Scrn (NotDetected) U Benzodiazepines Scrn (NotDetected) Urine Cocaine Screen (NotDetected) U Marijuana (THC) Screen (NotDetected) Serum Alcohol <10 mg/dL Disposition Clinical Impression: Encephalopathy, Obesity hypoventilation syndrome Disposition: ADMITTED IP TO THIS [facility] Condition: Stable Is patient prescribed a controlled substance at d/c from ED?: No Referrals: None,Stated [Primary Care Provider] - 1-2 days
--- NOTE | 2019-07-28 03:54 | CT ---
EXAMINATION TYPE: CT brain wo con DATE OF EXAM: 07/28/2019 COMPARISON: 10/31/2018 HISTORY: AMS CT DLP: 1083.40 mGycm Automated exposure control for dose reduction was used. Ventricles have normal size. There is no mass effect nor midline shift. There is no sign of intracran ial hemorrhage. The calvarium is intact. There is no evidence of cerebral edema. Skull base is intact . IMPRESSION: Negative CT scan of the brain. No change.
[2019-07-28] MEDS ORDERED: NALOXONE 0.4 MG/ML 1 ML VIAL IV PRN (04:53)
[2019-07-28] MEDS: SODIUM CHLORIDE 0.9% 1,000 ML IV SCH ×3 (05:07→22:22)
[2019-07-28 05:27] LABS: Glucose,Whole Blood 130 mg/dL (75-99)
[2019-07-28] MEDS ORDERED: HALOPERIDOL LACTATE 5 MG/ML 1 ML VIAL IM STA (06:03)
[2019-07-28 06:11] LABS: Glucose,Whole Blood 142 mg/dL (75-99)
[2019-07-28 11:35] LABS: Glucose,Whole Blood 124 mg/dL (75-99)
[2019-07-28] MEDS ORDERED: ALBUTEROL HFA INHALER INHALATION PRN (12:23)
[2019-07-28] MEDS ORDERED: POTASSIUM CHLORIDE ER 20 MEQ TAB.ER PO STA (12:30)
[2019-07-28] MEDS ORDERED: HALOPERIDOL LACTATE 5 MG/ML 1 ML VIAL IVP PRN (12:31)
--- NOTE | 2019-07-28 12:58 | P.HPIM ---
History of Present Illness 54-year-old the female is admitted for altered mental status patient has been agitated at home. Patient was diagnosed with breast lump for which she need to undergo biopsy because of which she says she is depressed and not been herself and been agitated. Patient was very combative when he may surround and he gave 10 mg by Sharon followed by another Versed in ER. Patient subsequently received Haldol because of which until now patient is significantly drowsy when I evaluated the patient she is arousable able to give me history but the still be confused and does have some memory issues. Patient all the complaint of dysuria patient urine is definitely abnormal patient was already started on Rocephin with urine cultures and obtain a chest x-ray patient any cough or sputum production patient denied any fever chills. Patient is also complaining of left lower flank pain. Patient on multiple medications that can cause confusion including Adderall Depakote Brady, baclofen. Patient denies using any of these medications excessively than prescribed denies any other drug abuse. Review of Systems REVIEW OF SYSTEMS: CONSTITUTIONAL: No fever, no malaise, no fatigue. HEENT: No recent visual problems or hearing problems. Denied any sore throat. CARDIOVASCULAR: No chest pain, orthopnea, PND, no palpitations, no syncope. PULMONARY: No shortness of breath, no cough, no hemoptysis. GASTROINTESTINAL: No diarrhea, no nausea, no vomiting, no abdominal pain. NEUROLOGICAL:as mentioned in HPI HEMATOLOGICAL: Denies any bleeding or petechiae. GENITOURINARY: as mentioned in HPI MUSCULOSKELETAL/RHEUMATOLOGICAL: Denies any joint pain, swelling, or any muscle pain. ENDOCRINE: Denies any polyuria or polydipsia. The rest of the 14-point review of systems is negative. Past Medical History Past Medical History: Diabetes Mellitus, Hyperlipidemia, Hypertension, Memory Impairment Additional Past Medical History / Comment(s): ectopic 04/1989; cervical polyps 08/2018 History of Any Multi-Drug Resistant Organisms: None Reported Past Surgical History: Cholecystectomy, Tonsillectomy Additional Past Surgical History / Comment(s): d & c 03/1989, ectopic 04/1989 removal of of right tube and ovary; cholecystectomy 06/1989; Past Anesthesia/Blood Transfusion Reactions: Previous Problems w/ Anesthesia Additional Past Anesthesia/Blood Transfusion Reaction / Comment(s): hard to wake patient up. Past Psychological History: ADD/ADHD, Anxiety, Bipolar, Depression, Panic Disorder, PTSD Smoking Status: Current every day smoker Past Alcohol Use History: Occasional Past Drug Use History: None Reported - Past Family History Father Family Medical History: Diabetes Mellitus, Hyperlipidemia, Hypertension Additional Family Medical History / Comment(s): alcoholism, drug addiction Mother Family Medical History: Cancer, COPD, Pneumonia Additional Family Medical History / Comment(s): alcoholism, psych history Medications and Allergies Home Medications Medication Instructions Recorded Confirmed Type Aspirin 81 mg PO DAILY 08/07/14 01/29/19 History Dextroamphetamine/Amphetamine 20 mg PO BID 08/07/14 01/29/19 History [Adderall] Divalproex [Depakote] 500 mg PO BID 08/07/14 01/29/19 History HYDROcodone/APAP 5-325MG [[place] 1 tab PO DAILY PRN 08/07/14 01/29/19 History 5-325] Potassium Chloride 8 meq PO QAM 08/07/14 01/29/19 History Simvastatin [Zocor] 80 mg PO HS 08/07/14 01/29/19 History cloNIDine HCL [Catapres] 0.2 mg PO BID 08/07/14 01/29/19 History Baclofen [Lioresal] 5 mg PO TID PRN 12/10/16 01/29/19 History DULoxetine HCL [Cymbalta] 60 mg PO BID 12/10/16 01/29/19 History Chlorthalidone [Hygroton] 25 mg PO QAM 10/31/18 01/29/19 History Glimepiride [Amaryl] 4 mg PO BID 10/31/18 01/29/19 History Levothyroxine Sodium [Synthroid] 50 mcg PO QAM 10/31/18 01/29/19 History metFORMIN HCL 1,000 mg PO BID 10/31/18 01/29/19 History Albuterol Nebulized [Ventolin 2.5 mg INHALATION RT-QID 11/24/18 01/29/19 History Nebulized] Ergocalciferol [Vitamin D2] 50,000 unit PO Q14D 11/24/18 01/29/19 History Albuterol Sulfate [Proair Hfa] 1 - 2 puff INHALATION Q4HR PRN #1 12/13/18 01/29/19 Rx inhaler Allergies Allergy/AdvReac Type Severity Reaction Status Date / Time Sulfa (Sulfonamide Allergy Unknown Verified 01/30/19 20:40 Antibiotics) Physical Exam Vitals: Vital Signs Temp Pulse Pulse Resp BP BP Pulse Ox 07/28/19 11:27 98.0 F 98 16 197/77 96 07/28/19 08:17 98.0 F 97 16 139/82 99 07/28/19 06:13 97.7 F 108 H 18 157/75 95 07/28/19 04:15 96 18 120/82 95 07/28/19 02:00 103 H 20 164/78 95 07/28/19 00:25 105 H 20 180/89 93 L 07/27/19 23:21 98.1 F 122 H 24 179/78 93 L Intake and Output 07/27/19 07/28/19 07/28/19 22:59 06:59 14:59 Other: # Voids 0 Weight 90.718 kg 90.718 kg PHYSICAL EXAMINATION: GENERAL: The patient is alert and oriented x3but confused, not in any acute distress. Well developed, well nourished. HEENT: Pupils are round and equally reacting to light. EOMI. No scleral icterus. No conjunctival pallor. Normocephalic, atraumatic. No pharyngeal erythema. No thyromegaly. CARDIOVASCULAR: S1 and S2 present. No murmurs, rubs, or gallops. PULMONARY: Chest is clear to auscultation, no wheezing or crackles. ABDOMEN: Soft, nontender, nondistended, normoactive bowel sounds. No palpable organomegaly. MUSCULOSKELETAL: No joint swelling or deformity. EXTREMITIES: No cyanosis, clubbing, or pedal edema. NEUROLOGICAL: Gross neurological examination did not reveal any focal deficits. SKIN: No rashes. Results CBC & Chem 7: 07/27/19 23:15 07/27/19 23:15 Labs: Abnormal Lab Results - Last 24 Hours (Table) 07/27/19 07/27/19 07/27/19 Range/Units 00:39 00:39 23:15 WBC 14.3 H (3.8-10.6) k/uL Neutrophils # 10.1 H (1.3-7.7) k/uL Potassium (3.5-5.1) mmol/L Chloride (98-107) mmol/L Carbon Dioxide (22-30) mmol/L BUN (7-17) mg/dL Creatinine (0.52-1.04) mg/dL Glucose (74-99) mg/dL POC Glucose (mg/dL) (75-99) mg/dL AST (14-36) U/L Urine Appearance Cloudy H (Clear) Urine Protein 1+ H (Negative) Urine Ketones Trace H (Negative) Urine Blood Small H (Negative) Urine WBC 25 H (0-5) /hpf Urine WBC Clumps Many H (None) /hpf Urine Bacteria Rare H (None) /hpf Hyaline Casts 185 H (0-2) /lpf Urine Mucus Rare H (None) /hpf Urine Opiates Screen Detected H (NotDetected) Ur Amphetamines Screen Detected H (NotDetected) 07/27/19 07/28/19 07/28/19 Range/Units 23:15 05:25 06:05 WBC (3.8-10.6) k/uL Neutrophils # (1.3-7.7) k/uL Potassium 3.4 L (3.5-5.1) mmol/L Chloride 108 H (98-107) mmol/L Carbon Dioxide 18 L (22-30) mmol/L BUN 29 H (7-17) mg/dL Creatinine 1.23 H (0.52-1.04) mg/dL Glucose 179 H (74-99) mg/dL POC Glucose (mg/dL) 130 H 142 H (75-99) mg/dL AST 46 H (14-36) U/L Urine Appearance (Clear) Urine Protein (Negative) Urine Ketones (Negative) Urine Blood (Negative) Urine WBC (0-5) /hpf Urine WBC Clumps (None) /hpf Urine Bacteria (None) /hpf Hyaline Casts (0-2) /lpf Urine Mucus (None) /hpf Urine Opiates Screen (NotDetected) Ur Amphetamines Screen (NotDetected) 07/28/19 Range/Units 11:30 WBC (3.8-10.6) k/uL Neutrophils # (1.3-7.7) k/uL Potassium (3.5-5.1) mmol/L Chloride (98-107) mmol/L Carbon Dioxide (22-30) mmol/L BUN (7-17) mg/dL Creatinine (0.52-1.04) mg/dL Glucose (74-99) mg/dL POC Glucose (mg/dL) 124 H (75-99) mg/dL AST (14-36) U/L Urine Appearance (Clear) Urine Protein (Negative) Urine Ketones (Negative) Urine Blood (Negative) Urine WBC (0-5) /hpf Urine WBC Clumps (None) /hpf Urine Bacteria (None) /hpf Hyaline Casts (0-2) /lpf Urine Mucus (None) /hpf Urine Opiates Screen (NotDetected) Ur Amphetamines Screen (NotDetected) Thrombosis Risk Factor Assmnt - Choose All That Apply Any of the Below Risk Factors Present?: Yes Each Factor Represents 1 point: Age 41-60 years, Obesity (BMI >25) Other Risk Factors: No Thrombosis Risk Factor Assessment Total Risk Factor Score: 2 Thrombosis Risk Factor Assessment Level: Low Risk Assessment and Plan Plan: -altered lMENTAL status:: Multifactorial toxic encephalopathy from medications along with UTI contributing to that and her psychiatric issues of tablet contributing to her encephalopathy as well. We will hold off on baclofen, No rco, Adderall.psychiatric be consulted for Her psychiatric medication titration and management.brain CT did not show any significant abnormality. -urinary tract infection awaiting urine cultures patient will be on empiric Rocephin -Hyperlipidemia -Hypertension hold off on home regimen as patient is on a diuretic and clonidine at home this will be held and patient will be temporarily and hydralazine. -acute renal failure prerenal azotemia baseline creatinine is within normal limits presently it's elevated to 1.3, continue with IV fluids recheck the basic metabolic profile -type 2 diabetes mellitus metformin will be held other hypoglycemic agents will be held held as well patient will be on sliding scale insulin patient may not be a candidate for metformin if her kidney function doesn't improve -Bipolar disorder management as per psychiatric -Continue nicotine use -DVT prophylaxis with subcutaneousheparin
[2019-07-28] MEDS ORDERED: hydrALAZINE HCL 50 MG TAB PO SCH (13:00)
[2019-07-28 13:03] LABS: Basophils # (A) 0.1 k/uL (0-0.2); Basophils % (A) 1 %; Eosinophils # (A) 0.3 k/uL (0-0.7); Eosinophils % (A) 4 %; HCT 38.7 % (34.0-46.0); HGB 13.3 gm/dL (11.4-16.0); Lymphocytes # (A) 2.8 k/uL (1.0-4.8); Lymphocytes % (A) 36 %; MCH 32.8 pg (25.0-35.0); MCHC 34.5 g/dL (31.0-37.0); MCV 95.1 fL (80.0-100.0); Mean Platelet Volume 7.7; Monocytes # (A) 0.4 k/uL (0-1.0); Monocytes % (A) 5 %; Neutrophils # (A) 4.1 k/uL (1.3-7.7); Neutrophils % (A) 53 %; Platelet Count 293 k/uL (150-450); RBC 4.07 m/uL (3.80-5.40); RDW 14.2 % (11.5-15.5); WBC 7.8 k/uL (3.8-10.6)
--- NOTE | 2019-07-28 13:13 | XR ---
EXAMINATION TYPE: XR chest 2V DATE OF EXAM: 07/28/2019 HISTORY: R/O Pneumonia. REFERENCE: Previous study dated 12/13/2018. FINDINGS: The patient has taken a relatively poor inspiration. The heart projects at the upper limits of normal. The lungs appear clear with no focal pneumonia. Pleural spaces are clear. IMPRESSION: STUDY COMPROMISED BY POOR INSPIRATION DEMONSTRATING NO DEFINITE ACUTE PULMONARY ABNORMALITY.
[2019-07-28] MEDS: INSULIN ASPART (NovoLOG) 100 UNIT/ML VIAL SQ SCH ×3 (13:14→22:15)
[2019-07-28] MEDS: hydrALAZINE HCL 50 MG TAB PO SCH ×2 (13:17→22:21)
[2019-07-28] MEDS: HEPARIN SODIUM,PORCINE 5,000 UNIT/ML 1 ML VIAL SQ SCH ×2 (15:54→22:21)
[2019-07-28] MEDS: ALBUTEROL NEBULIZED 2.5 MG/3 ML INHALATION SCH ×2 (16:04→21:03)
[2019-07-28 16:36] LABS: Glucose,Whole Blood 126 mg/dL (75-99)
[2019-07-28] MEDS ORDERED: ATORVASTATIN 40 MG TAB PO SCH (21:00)
[2019-07-28 21:01] LABS: Glucose,Whole Blood 126 mg/dL (75-99)
[2019-07-28] MEDS: DIVALPROEX 500 MG TABLET.DR PO SCH (22:21)
[2019-07-28] MEDS: DULoxetine HCL 60 MG CAPSULE.DR PO SCH (22:21)
[2019-07-29 06:09] LABS: Glucose,Whole Blood 163 mg/dL (75-99)
[2019-07-29] MEDS: SODIUM CHLORIDE 0.9% 1,000 ML IV SCH (06:21)
[2019-07-29] MEDS: INSULIN ASPART (NovoLOG) 100 UNIT/ML VIAL SQ SCH ×2 (06:29→12:55)
[2019-07-29] MEDS ORDERED: LEVOTHYROXINE 50 MCG TAB PO SCH (06:30)
[2019-07-29 06:54] LABS: African American GFR (CKD) >90 (>60 ml/min/1.73 sqM); Anion Gap 9 mmol/L; Blood Urea Nitrogen 14 mg/dL (7-17); Carbon Dioxide 28 mmol/L (22-30); Chloride 100 mmol/L (98-107); Glucose 164 mg/dL (74-99); Non-African American GFR(CKD) >90 (>60 ml/min/1.73 sqM); Potassium 3.2 mmol/L (3.5-5.1); Sodium 137 mmol/L (137-145)
[2019-07-29 08:04] VITALS: BP 147/70; RESP 16; TEMP 98.3
[2019-07-29] MEDS: hydrALAZINE HCL 50 MG TAB PO SCH (08:46)
[2019-07-29] MEDS: DULoxetine HCL 60 MG CAPSULE.DR PO SCH (08:46)
[2019-07-29] MEDS: DIVALPROEX 500 MG TABLET.DR PO SCH (08:46)
[2019-07-29] MEDS: HEPARIN SODIUM,PORCINE 5,000 UNIT/ML 1 ML VIAL SQ SCH (08:46)
[2019-07-29] MEDS ORDERED: ACETAMINOPHEN TAB 325 MG TAB PO PRN (08:58)
[2019-07-29] MEDS: ALBUTEROL NEBULIZED 2.5 MG/3 ML INHALATION SCH ×2 (09:20→12:57)
[2019-07-29 09:30] VITALS: PULSE 100
[2019-07-29] MEDS ORDERED: POTASSIUM CHLORIDE ER 20 MEQ TAB.ER PO STA ×2 (11:06→12:51)
[2019-07-29 11:35] LABS: Glucose,Whole Blood 182 mg/dL (75-99)
--- NOTE | 2019-07-29 12:24 | P.CN ---
Psychiatric Consult - . Consult date: 07/29/19 Consult:: IDENTIFYING DATA: She is a 54-year-old female brought to the ED by EMS for altered mental status. HISTORY OF PRESENT ILLNESS: According to the ED note a neighbor found her sleeping and a neighbor's apartment. When EMS arrived on the scene she was agitated and combative. She received 10 mg of Versed and "continue to attempt to fight staff. She bit the paramedics." I reviewed the medical record and interviewed the patient. She has no recollection of events that occurred prior to admission. She does not remember being agitated, combative, biting the medical policy specialist. She remembers feeling depressed and crying. She became distressed because her boyfriend without consulting her and told her to be quiet. She alleged that the neighbor invited into the apartment after he noticed that she was upset. She believes the neighbor called EMS because she was depressed and tearful. She complained of feeling depressed. He was thinking about her health and her mother's. She self diagnosed a breast lump in 2018. Her mammogram in November 2018 confirmed the presence of a tumor. She did not keep her appointment for biopsy because she was homeless at the time and could not find transportation to the appointment. She was unable to reschedule the procedure because of the pandemic. She has been living with her boyfriend since March 2019. She described intermittent episodes depression "throughout my life". She had one psychiatric hospitalization in November 2018 for depression and [place] in [facility]. She receives mental health services through [facility] where she has an individual therapist, appears manufacturing support engineer and psychiatrist. She is prescribed multiple psychotropic medications including Depakote, Cymbalta, Sinequan and Rexalti. She mass met [id number] with her providers prior to the pandemic. She keeps in telephone contact with her rn case manager hospice. She described feelings of depression but denied hopelessness, helplessness or worthlessness. She denied experiencing suicidal thoughts, intent or plan. She denied persistent anxiety that she is unable to control. She denied obsessions or compulsions. She denied experiencing periods of elevated mood or sustained irritability suggestive of rogelio or hypomania. She denied experiencing auditory, visual or olfactory hallucinations, ideas reference, thought insertion, thought broadcasting or thought control. She denied use of alcohol or drugs. She has history of alcohol use disorder and has been abstinent for 7 months. 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 She reported that she is receives mental health services off and on throughout her adult life. Her only psychiatric hospitalization was in November 2018 as described above. PAST MEDICAL HISTORY: see admission history and physical ALLERGIES: sulfa SUBSTANCE USE HISTORY: She described history of alcohol use and alcohol use problems. She is had 1 residential treatment episode at [facility] and has attended Alcoholics Anonymous. She had 2 DUIs and spent 36 days in assisted for violation of the DUI probation. She alleged that she has been abstinent from alcohol for the last 7 months. FAMILY PSYCHIATRIC/SUBSTANCE USE HISTORY: Her mother had an alcohol use disorder SOCIAL HISTORY: she was born when her mother wasn't present for charges of armed robbery. After her , her grandparents obtained full custody and raised her. She is and has 4 children and 7 grandchildren. She was homeless for 7 months where she lived at [facility]. She has no income and is supported by her boyfriend. She talked about having difficulties obtaining state aid because her address is the [facility] which is now [facility]. MENTAL STATUS EXAM: she presented as an obese 54-year-old female who was pleasant on approach. She made eye contact and attended the interview. She had no distinction features are prominent physical abnormalities. She had a blunted facial expression. She was alert and oriented to person, place and time. She had psychomotor retardation but no abnormal involuntary movements. I did not evaluate his gait. His speech was spontaneous with normal rate, rhythm and volume. Her affect was depressed but not intense and appropriate. She denied suicidal ideation and wishes. She denied homicidal ideation. She denied feeling hopeless, helpless or worthless. She didn't express ideas reference, paranoid ideation, magical ideation or delusions. Her thinking was concrete. Associations were coherent, logical and goal directed. She denied hallucinations did not appear to responding to internal stimuli. We completed the Last Orientation Memory and Concentration test. Her total weighted error score was 2; total weighted error score greater than 10 is consistent with a dementia. She knew the month and year. She estimated the time within 1 hour actual time. She registered memory phrase "Jose Rowe, [address] [place] [address]." She was able to count backwards from 20-1 and name the months of the year in reverse order (beginning with January). She recalled most of the elements of memory phrase with the exception of "42". IMPRESSIONS: She is a 54-year-old female who has a long history of psychiatric illness and psychiatric treatment. She presented to [facility] for evaluation treatment of an altered mental status. During our interview she was alert and fully oriented. She was able to provide much of her past psychiatric, medical, substance abuse and social history. Performance on mental status testing was not consistent with confusion or impaired cognition. He confusion that brought her to [facility] appears to have cleared. She continues to have depression but is uncomplicated by suicidality or psychosis. There is no indication for transfer to the psychiatric unit at this time. She had benefit from continued outpatient mental health services through [facility]. DIAGNOSIS acute confusional state resolved, chronic depressive disorder, rule out major depressive disorder recurrent, rule out schizoaffective disorder, rule out bipolar disorder PLAN: Continue outpatient psychotropic medications-Depakote 500 mg twice a day and Cymbalta 60 mg twice a day. I was unable to verify her dose and frequency of dosing for Rexalti. Schedule follow-up appointment at [facility] after discharge. Psychiatry will sign off. Thank you for this consult. 07/29/19 12:02
--- NOTE | 2019-07-29 12:34 | P.DS ---
Providers Date of admission: 07/28/19 05:07 Attending physician: Kiko Pierce Consults: 07/28/19 12:49 Consult Physician Routine Consulting Provider: Jose Brizuela Consult Reason/Comments: med management Do you want consulting provider notified?: Yes Primary care physician: Stated None Hospital Course: 54-year-old the female is admitted for altered mental status patient has been agitated at home. Patient was diagnosed with breast lump for which she need to undergo biopsy because of which she says she is depressed and not been herself and been agitated. Patient was very combative when he may surround and he gave 10 mg by Sharon followed by another Versed in ER. Patient subsequently received Haldol because of which until now patient is significantly drowsy when I evaluated the patient she is arousable able to give me history but the still be confused and does have some memory issues. Patient all the complaint of dysuria patient urine is definitely abnormal patient was already started on Rocephin with urine cultures and obtain a chest x-ray patient any cough or sputum production patient denied any fever chills. Patient is also complaining of left lower flank pain. Patient on multiple medications that can cause confusion including Adderall Depakote Old Glory, baclofen. Patient denies using any of these medications excessively than prescribed denies any other drug abuse. 07/29/2019 Patient is a doing really well today and in overnight events patient mental status is at her baseline patient was evaluated by psychiatric and they're recommending to continue psychiatric medications as it is. Extensive counseling regarding narcotic overuse was provided and patient was asked to wean off on Flexeril HER FLEXERIL FROM 2081 TWICE A DAY AND THIS CAN BE EVENTUALLY DISCONTINUED. norco will be discontinued. Patient will be resumed on chlorthalidone but we'll the cut down the clonidine with intention to wean it off as well and patient can use other antiretroviral medications in place of Claritin if her blood pressure goes up patient was asked to check her blood pressure and take it to primary care physician. Not have urine cultures available since she improved on Rocephin patient will be discharged on Ceftin and will follow her cultures tomorrow and if anybody state which change appropriate changes will be made. PHYSICAL EXAMINATION: GENERAL: The patient is alert and oriented x3, not in any acute distress. Well developed, well nourished. HEENT: Pupils are round and equally reacting to light. EOMI. No scleral icterus. No conjunctival pallor. Normocephalic, atraumatic. No pharyngeal erythema. No thyromegaly. CARDIOVASCULAR: S1 and S2 present. No murmurs, rubs, or gallops. PULMONARY: Chest is clear to auscultation, no wheezing or crackles. ABDOMEN: Soft, nontender, nondistended, normoactive bowel sounds. No palpable organomegaly. MUSCULOSKELETAL: No joint swelling or deformity. EXTREMITIES: No cyanosis, clubbing, or pedal edema. NEUROLOGICAL: Gross neurological examination did not reveal any focal deficits. SKIN: No rashes. Assessment and Plan Plan: -altered lMENTAL status:: Multifactorial toxic encephalopathy from medications along with UTI c -urinary tract infection -Hyperlipidemia -Hypertension -acute renal failure prerenal azotemia improved with IV fluids -Bipolar disorder management as per psychiatric -Nicotine cessation counseling was provided Patient Condition at Discharge: Stable Plan - Discharge Summary Discharge Rx Participant: No New Discharge Prescriptions: New Cefuroxime Axetil [Ceftin] 500 mg PO BID 4 Days #8 tab Continue Dextroamphetamine/Amphetamine [Adderall] 20 mg PO BID Simvastatin [Zocor] 80 mg PO HS Potassium Chloride 8 meq PO QAM Divalproex [Depakote] 500 mg PO BID Aspirin 81 mg PO DAILY DULoxetine HCL [Cymbalta] 60 mg PO BID metFORMIN HCL 1,000 mg PO BID Levothyroxine Sodium [Synthroid] 50 mcg PO QAM Chlorthalidone [Hygroton] 25 mg PO QAM Glimepiride [Amaryl] 4 mg PO BID Ergocalciferol [Vitamin D2 (DRISDOL)] 50,000 unit PO Q14D Albuterol Nebulized [Ventolin Nebulized] 2.5 mg INHALATION RT-QID Albuterol Sulfate [Proair Hfa] 1 - 2 puff INHALATION Q4HR PRN #1 inhaler PRN Reason: difficulty in breathing Changed cloNIDine HCL [Catapres] 0.1 mg PO BID #0 Baclofen [Lioresal] 5 mg PO BID #0 Discontinued HYDROcodone/APAP 5-325MG [Old Glory 5-325] 1 tab PO DAILY PRN PRN Reason: Pain Discharge Medication List Aspirin 81 mg PO DAILY 08/07/14 [History] Dextroamphetamine/Amphetamine [Adderall] 20 mg PO BID 08/07/14 [History] Divalproex [Depakote] 500 mg PO BID 08/07/14 [History] Potassium Chloride 8 meq PO QAM 08/07/14 [History] Simvastatin [Zocor] 80 mg PO HS 08/07/14 [History] DULoxetine HCL [Cymbalta] 60 mg PO BID 12/10/16 [History] Chlorthalidone [Hygroton] 25 mg PO QAM 10/31/18 [History] Glimepiride [Amaryl] 4 mg PO BID 10/31/18 [History] Levothyroxine Sodium [Synthroid] 50 mcg PO QAM 10/31/18 [History] metFORMIN HCL 1,000 mg PO BID 10/31/18 [History] Albuterol Nebulized [Ventolin Nebulized] 2.5 mg INHALATION RT-QID 11/24/18 [History] Ergocalciferol [Vitamin D2 (DRISDOL)] 50,000 unit PO Q14D 11/24/18 [History] Albuterol Sulfate [Proair Hfa] 1 - 2 puff INHALATION Q4HR PRN #1 inhaler 12/13/18 [Rx] Baclofen [Lioresal] 5 mg PO BID #0 07/29/19 [Rx] Cefuroxime Axetil [Ceftin] 500 mg PO BID 4 Days #8 tab 07/29/19 [Rx] cloNIDine HCL [Catapres] 0.1 mg PO BID #0 07/29/19 [Rx] Follow up Appointment(s)/Referral(s): Isacc Gongora MD [STAFF PHYSICIAN] - 3 Days Discharge Disposition: HOME SELF-CARE
== END 2019-07-29 13:47 | disposition home or self-care (01) ==
LOC: EC 22:51 → 3SCARD 07-28 05:07
PROVIDERS: ADMIT Hospitalist; ATTEND Hospitalist
DX: G92 Toxic encephalopathy (principal); N39.0 Urinary tract infection, site not specified; N17.8 Other acute kidney failure; R79.89 Other specified abnormal findings of blood chemistry; E66.2 Morbid (severe) obesity with alveolar hypoventilation; Z68.39 Body mass index [BMI] 39.0-39.9, adult; E11.9 Type 2 diabetes mellitus without complications; E78.5 Hyperlipidemia, unspecified; I10 Essential (primary) hypertension; R41.3 Other amnesia; F41.9 Anxiety disorder, unspecified; F31.9 Bipolar disorder, unspecified; F90.9 Attention-deficit hyperactivity disorder, unspecified type; F41.0 Panic disorder [episodic paroxysmal anxiety]; F43.10 Post-traumatic stress disorder, unspecified; F17.200 Nicotine dependence, unspecified, uncomplicated; N63.0 Unspecified lump in unspecified breast; R30.0 Dysuria; Z83.3 Family history of diabetes mellitus; Z83.6 Family history of other diseases of the respiratory system; Z81.1 Family history of alcohol abuse and dependence; Z81.3 Family history of other psychoactive substance abuse and dependence; Z82.49 Family history of ischemic heart disease and other diseases of the circulatory system; Z83.438 Family history of other disorder of lipoprotein metabolism and other lipidemia; Z90.49 Acquired absence of other specified parts of digestive tract; Z90.721 Acquired absence of ovaries, unilateral; Z98.890 Other specified postprocedural states; Z79.84 Long term (current) use of oral hypoglycemic drugs; Z79.82 Long term (current) use of aspirin; Z79.890 Hormone replacement therapy; Z79.899 Other long term (current) drug therapy; Z88.2 Allergy status to sulfonamides
CPT/HCPCS: 96365; 96366; 96372 ×2; 96361; 99285; 36415; 94640 ×3; 80053; 80048; 85025 ×2; 81001; 80306; 83520; 71046; 70450; G0378 ×2; G0480 ×2; U0003; J1630; J1644 ×2; J0696 ×2; 80320; 80329

== ENCOUNTER → 2019-10-25 | Outpatient (CLI) | payer OTHER ==
[2019-10-25 13:07] VITALS: BP 131/79; PULSE 108; RESP 20; TEMP 98.8
--- NOTE | 2019-10-25 13:39 | P.PN ---
Subjective Progress Note Date: 10/25/19 Principal diagnosis: abnormal mammogram right breast Mena is a 54-year-old white female initially seen in January 2019. who had a routine screening mammogram performed in November 2018. Additional views of the right breast recommended and this revealed 2 heterogeneous upper outer quadrant middle depth groups of calcifications. The more posterior group was 6 mm and the more anterior was 3 mm. Biopsy was recommended of the larger group with recommendation of the second group to be made after results of the biopsy of the larger group was determined. The patient herself does not feel anything of concern in either breast. At times she does have some discomfort in her breast which is intermittent in nature and is not hurting at the present time. She was scheduled for biopsy she was unable to make a secondary to difficulty with transportation. Secondary to the pandemic her procedure was further delayed. The patient although scheduled for a teleconference she did not answer the phone call. No nipple discharge of concern in the breast. No trauma or infection in the breast. She has over the past 10 years had some discharge from pores on the area on both sides of the breast. She has never been treated for infection. The patient does not complain of any lumps masses or nodules in either breast. Family history: mother: breast cancer at 63, second primary on the other side Hormonal History: menarche: 12 , 3 miscarrages, breast fed: yes, first born at 18; with one tube and ovary removed menopause: 48 BCP: no, hormones: no Medical History: DM HTN high cholesterol COPD arthritis bipolar anxiety/depressioin PTSD Surgical History: 1. tube and ovary removed 2. tonsils removed 3. gallbladder Social History: smoke: 1/PPD for 43 years alcohol: 39-49 a severe alcoholic, lst drank labor day drugs: none - Constitutional Constitutional: Denies chills, Denies fever - EENT Eyes: bilateral blurred vision Ears: bilateral: tinnitus Ears, nose, mouth and throat: Denies headache, Denies sore throat - Breasts Breasts: bilateral: as per HPI - Cardiovascular Cardiovascular: Reports high blood pressure - Respiratory Comment: smoker, COPD - Gastrointestinal Gastrointestinal: Reports constipation, Reports diarrhea - Genitourinary (Female) Comment: UTI on cipro Genitourinary: Denies dysuria, Denies hematuria - Menstruation Menstruation: Reports postmenopausal - Musculoskeletal Comment: arthritis - Integumentary Integumentary: Denies pruritus, Denies rash - Neurological Neurological: Reports numbness, Denies weakness - Psychiatric Psychiatric: Reports anxiety - Endocrine Comment: diabetes hypothyroid Endocrine: Reports weight change - Hematologic/Lymphatic Comment: none - Allergic/Immunologic Allergic/Immunologic: Reports as per HPI Objective - Vital Signs Vital signs: Vital Signs Temp 98.8 F 10/25/19 13:03 Pulse 108 H 10/25/19 13:03 Resp 20 10/25/19 13:03 BP 131/79 10/25/19 13:03 Pulse Ox 95 10/25/19 13:03 Intake & Output 10/24/19 10/25/19 10/25/19 18:59 06:59 18:59 Weight 101.151 kg - Exam BMI 39.5 - Constitutional General appearance: Present: average body habitus - EENT Eyes: Present: EOMI ENT: Present: hearing grossly normal - Neck Neck: Present: normal ROM - Respiratory Respiratory: bilateral: CTA - Cardiovascular Rhythm: regular Heart sounds: normal: S1, S2 - Gastrointestinal General gastrointestinal: Present: normal bowel sounds, soft - Integumentary Integumentary: Present: normal turgor - Musculoskeletal Musculoskeletal: Present: gait normal - Psychiatric Psychiatric: Present: A&O x's 3 - Additional findings Additional findings: breast exam: BRA: 42 C inspection: bilateral grade 3 ptosis palpation: right breast: Multi-positional exam fibrocystic changes, right breast slightly larger than left breast Right axilla: No adenopathy of concern Left breast: Multiple positional exam fibrocystic changes, no dominant masses or nodules of concern Left axilla: No adenopathy of concern Assessment and Plan Assessment: Impression DM HTN high cholesterol COPD arthritis bipolar anxiety/depressioin PTSD Mammographic abnormality right breast Plan: 1. Right breast stereotactic core biopsy 2. Medical management of medical conditions 3. Repeat right breast mammogram Risks and benefits of procedure discussed with the patient she understands and wishes to proceed. I have also discussed that it would be lyon to repeat a right breast mammogram as it has been approximately 10 months since the mammogram done which recommended the biopsy be performed. Cc: Dr. Gongora Encounter:25 minutes > 50% of time in planning and counselling
--- NOTE | 2019-10-26 07:08 | MM ---
Reason for exam: follow-up at short interval from prior study. Last mammogram was performed 10 months ago. History: Patient is postmenopausal. Family history of breast cancer in mother at age 62. Physical Findings: Breast exam performed by Dr. Pepper. MG 3D Diag Mammo W/Cad RT CC, MLO, LM, CC with magnification, and LM with magnification view(s) were taken of the right breast. Prior study comparison: December 20, 2018, right breast MG work up mamm w CAD RT. December 20, 2018, bilateral MG screening mammo w CAD. There are scattered fibroglandular densities. Two persisting groups of punctate and heterogeneous calcifications upper outer quadrant. These results were verbally communicated with the patient and result sheet given to the patient on 10/25/19. ASSESSMENT: Suspicious, BI-RAD 4 RECOMMENDATION: Stereotactic core biopsy of the right breast. (2 sites upper outer quadrant) Called office with mammographic findings and has scheduled an appointment for the patient for 11/23/19 at 2:[address] Pepper. Biopsy scheduled for 11/09/19 at 8:00. PRELIMINARY REPORT CALLED AND FAXED TO DR. PEPPER ON 10/25/19.
== END | disposition home or self-care (01) ==
LOC: WWCWWP 12:35
PROVIDERS: ATTEND Surgery
DX: R92.8 Other abnormal and inconclusive findings on diagnostic imaging of breast (principal)
CPT/HCPCS: 77065; G0279; 77061

== ENCOUNTER → 2019-11-09 | Day surgery (SDC) | payer OTHER ==
[2019-11-09 07:28] VITALS: BP 133/84; PULSE 101; RESP 16; TEMP 98.5
--- NOTE | 2019-11-09 10:14 | P.PN ---
Subjective Progress Note Date: 11/09/19 Principal diagnosis: abnormal right breast mammogram Mena is a 54-year-old white female who had a routine screening mammogram performed in November 2018. Additional views of the right breast recommended and this revealed 2 heterogeneous upper outer quadrant middle depth groups of calcifications. The more posterior group was 6 mm and the more anterior was 3 mm. Biopsy was recommended of the larger group with recommendation of the second group to be made after results of the biopsy of the larger group was determined. The patient herself does not feel anything of concern in either breast. At times she does have some discomfort in her breast which is intermittent in nature and is not hurting at the present time. No nipple discharge of concern in the breast. No trauma or infection in the breast. She has over the past 10 years had some discharge from pores on the area on both sides of the breast. She has never been treated for infection. She was scheduled multiple times for stereotactic core biopsy but was unable to make these appointments. She did come today for stereotactic core biopsy but was extremely anxious and unable to sit still on the stereotactic core biopsy table. Therefore the procedure was terminated. Her case was reviewed with Dr. Bang from radiology and he feels that needle localization even if she is moving somewhat would be a better choice and excision in the operating room. The patient expressed concern that she did not feel safe at home, she was given information regarding crisis shelters and contact information. She now feels comfortable about leaving the hospital. Family history: mother: breast cancer at 63, second primary on the other side Hormonal History: menarche: 12 , 3 midcarrages, breast fed: yes, first born at 18; with one tube and ovary removed menopause: 48 BCP: no, hormones: no Medical History: DM HTN high cholesterol COPD arthritis bipolar anxiety/depressioin PTSD Surgical History: 1. tube and ovary removed 2. tonsils removed 3. gallbladder Social History: smoke: 1/PPD for 44 years alcohol: 39-49 a severe alcoholic, last drank several months ago drugs: none - Constitutional Constitutional: Denies chills, Denies fever - EENT Eyes: bilateral blurred vision Ears: bilateral: tinnitus Ears, nose, mouth and throat: Denies headache, Denies sore throat - Breasts Breasts: bilateral: as per HPI - Cardiovascular Cardiovascular: Reports high blood pressure - Respiratory Comment: smoker, COPD - Gastrointestinal Gastrointestinal: Reports constipation, Reports diarrhea - Genitourinary (Female) Comment: UTI in past Genitourinary: Denies dysuria, Denies hematuria - Menstruation Menstruation: Reports postmenopausal - Musculoskeletal Comment: arthritis - Integumentary Integumentary: Denies pruritus, Denies rash - Neurological Neurological: Reports numbness, Denies weakness - Psychiatric Psychiatric: Reports anxiety, bipolar follows with DR. Galeas, does not see a psychiatrist - Endocrine Comment: diabetes hypothyroid Endocrine: Reports weight change - Hematologic/Lymphatic Comment: none - Allergic/Immunologic Allergic/Immunologic: Reports as per HPI Objective - Vital Signs Vital signs: Vital Signs Temp 98.5 F 11/09/19 07:22 Pulse 101 H 11/09/19 07:22 Resp 16 11/09/19 07:22 BP 133/84 11/09/19 07:22 Pulse Ox Intake & Output 11/08/19 11/09/19 11/09/19 18:59 06:59 18:59 Weight 90.718 kg - Exam BMI 35.4 - Constitutional Constitutional Comment(s): very anxious - EENT Eyes: Present: EOMI ENT: Present: hearing grossly normal - Respiratory Respiratory: bilateral: CTA - Cardiovascular Rhythm: regular Heart sounds: normal: S1, S2 - Gastrointestinal General gastrointestinal: Present: normal bowel sounds, soft - Integumentary Integumentary: Present: normal turgor - Psychiatric Psychiatric Comment(s): very agitated - Additional findings Additional findings: breast exam: BRA: extra large sports bra Inspection: Bilateral grade 3 ptosis, right breast larger than left breast Palpation: Right breast: Multi-positional exam no dominant masses or nodules of concern, fibrocystic changes Right axilla: No adenopathy of concern Left breast: Multiple positional exam fibrocystic changes no dominant masses or nodules of concern Left axilla: No adenopathy of concern Assessment and Plan Assessment: Impression: 1. Mammographic abnormality highly suspicious right breast 2 areas strongly recommend tissue diagnosis patient unable to have stereotactic core biopsy today secondary to agitation and moving repeatedly on the table 2. Bipolar 3. Anxiety 4. History of alcohol abuse disorder in the past 5. DM 6. HTN 7. high cholesterol 8. COPD 9. arthritis 10. bipolar 11. anxiety/depressioin 12. PTSD Plan: 1. Needle localization excisional biopsy in the operating room of 2 areas of concern in the right breast 2. Preoperative clearance from Dr. Gongora 3. Patient given information for counseling and shelters if she feels that this would be appropriate Cc: Dr. Gongora Risk and benefits of needle localization and excisional biopsy were discussed with the patient and her male friend. They understand and she wishes to proceed. Risks include but are not limited to bleeding infection reaction to the anesthetic. Additionally she understands she will have to sit still have needle localization done preoperatively. She was seen in evaluation prior to leaving here by social work as well as discussed by risk management. encounter 55 minutes, > 50% of time spent in planning and counselling
--- NOTE | 2019-11-12 08:24 | MM ---
EXAMINATION TYPE: MG discontinued stereo core RT DATE OF EXAM: 11/09/2019 COMPARISON: NONE CLINICAL HISTORY: Abnormal mammogram TECHNIQUE: Patient was brought to the stereotactic biopsy suite in preparation for biopsy. Despite mu ltiple attempts with various techniques adequate relaxation by the patient was unable to be obtained. There was excessive motion and noncooperation by the patient. Procedure was terminated. Options were discussed with the procedure surgeon. IMPRESSION: 1. Procedure aborted prior to targeting due to patient noncooperation Recommendations: 1. Alternative biopsy techniques were discussed with the surgeon. Patient will be scheduled for wire localization.
== END ==
LOC: RADMAMWWP 07:11
PROVIDERS: ATTEND Surgery
DX: R92.1 Mammographic calcification found on diagnostic imaging of breast (principal); Z53.09 Procedure and treatment not carried out because of other contraindication; Z80.3 Family history of malignant neoplasm of breast; I10 Essential (primary) hypertension; E11.9 Type 2 diabetes mellitus without complications; E78.00 Pure hypercholesterolemia, unspecified; J44.9 Chronic obstructive pulmonary disease, unspecified; M19.90 Unspecified osteoarthritis, unspecified site; F31.9 Bipolar disorder, unspecified; F41.9 Anxiety disorder, unspecified; F10.11 Alcohol abuse, in remission; F43.10 Post-traumatic stress disorder, unspecified; F17.210 Nicotine dependence, cigarettes, uncomplicated

== ENCOUNTER → 2019-12-13 | Outpatient (CLI) | payer OTHER ==
[2019-12-13 13:00] VITALS: BP 148/90; PULSE 96; RESP 18; TEMP 98.6
--- NOTE | 2019-12-13 13:16 | P.PN ---
Subjective Progress Note Date: 12/13/19 Principal diagnosis: Abnormal right breast mammogram Mena is a 54-year-old white female who had a routine screening mammogram performed in November 2018. Additional views of the right breast recommended and this revealed 2 heterogeneous upper outer quadrant middle depth groups of calcifications. The more posterior group was 6 mm and the more anterior was 3 mm. Biopsy was recommended of the larger group with recommendation of the second group to be made after results of the biopsy of the larger group was determined. The patient herself does not feel anything of concern in either breast. At times she does have some discomfort in her breast which is intermittent in nature and is not hurting at the present time. No nipple discharge of concern in the breast. No trauma or infection in the breast. She has over the past 10 years had some discharge from pores on the area on both sides of the breast. She has never been treated for infection. She was scheduled multiple times for stereotactic core biopsy but was unable to make these appointments. She did come on 11-09-19 for stereotactic core biopsy but was extremely anxious and unable to sit still on the stereotactic core biopsy table. Therefore the procedure was terminated. Her case was reviewed with Dr. Bang from radiology and he feels that needle localization even if she is moving somewhat would be a better choice and excision in the operating room. The patient expressed concern that she did not feel safe at home, she was given information regarding crisis shelters and contact information. She now feels comfortable about leaving the hospital. She states she is much calmer today. Family history: mother: breast cancer at 63, second primary on the other side Hormonal History: menarche: 12 , 3 midcarrages, breast fed: yes, first born at 18; with one tube and ovary removed menopause: 48 BCP: no, hormones: no Medical History: DM HTN high cholesterol COPD arthritis bipolar anxiety/depressioin PTSD Surgical History: 1. tube and ovary removed 2. tonsils removed 3. gallbladder Social History: smoke: 1/PPD for 44 years alcohol: 39-49 a severe alcoholic, last drank several months ago drugs: none - Constitutional Constitutional: Denies chills, Denies fever - EENT Eyes: bilateral blurred vision Ears: bilateral: tinnitus Ears, nose, mouth and throat: Denies headache, Denies sore throat - Breasts Breasts: bilateral: as per HPI - Cardiovascular Cardiovascular: Reports high blood pressure - Respiratory Comment: smoker, COPD - Gastrointestinal Gastrointestinal: Reports constipation, Reports diarrhea - Genitourinary (Female) Comment: UTI in past Genitourinary: Denies dysuria, Denies hematuria - Menstruation Menstruation: Reports postmenopausal - Musculoskeletal Comment: arthritis - Integumentary Integumentary: Denies pruritus, Denies rash - Neurological Neurological: Reports numbness, Denies weakness - Psychiatric Psychiatric: Reports anxiety, bipolar follows with DR. Galeas, does not see a psychiatrist - Endocrine Comment: diabetes hypothyroid Endocrine: Reports weight change - Hematologic/Lymphatic Comment: none Objective - Vital Signs Vital signs: Vital Signs Temp 98.6 F 12/13/19 12:58 Pulse 96 12/13/19 12:58 Resp 18 12/13/19 12:58 BP 148/90 12/13/19 12:58 Pulse Ox 96 12/13/19 12:58 Intake & Output 12/12/19 12/13/19 12/13/19 18:59 06:59 18:59 Weight 102.512 kg - Exam BMI 40 - Constitutional General appearance: Present: obese - EENT Eyes: Present: EOMI ENT: Present: hearing grossly normal - Respiratory Respiratory: bilateral: CTA - Cardiovascular Rhythm: regular Heart sounds: normal: S1, S2 - Gastrointestinal General gastrointestinal: Present: normal bowel sounds, soft - Integumentary Integumentary: Present: normal turgor - Musculoskeletal Musculoskeletal: Present: gait normal - Psychiatric Psychiatric: Present: A&O x's 3, appropriate affect - Additional findings Additional findings: Breast exam: Block: Extra-large sports bra Inspection: Bilateral grade 3 ptosis right breast larger than left breast Palpation: Right breast multiple positional exam no dominant masses or nodules of concern, fibrocystic changes Right axilla: No adenopathy of concern Left breast: Multiple positional exam fibrocystic changes no dominant masses or nodules of concern Left axilla: No adenopathy of concern Assessment and Plan Assessment: Impression: 1. Mammographic abnormality right breast 2 areas strongly recommended tissue diagnosis, patient was unable to stereo core biopsy secondary to agitation removing repeatedly on the table 2. Bipolar 3. Anxiety 4. History of alcohol abuse disorder in the past 5. Diabetes 6. Hypertension 7. High cholesterol 8. COPD 9. Arthritis 10. BMI 40 11. Anxiety/depression 12. Post-radical stress disorder Plan: 1. Needle localized and excisional partial mastectomy in the operating room of 2 areas of concern in the right breast, if possible she would like this to be done via a mastopexy incision, possible onco-plastic tissue transfer 2. Preoperative clearance from Dr. Gongora 3. As time states she feels safe at home CC: Dr. Gongora Risk and benefits of needle localization excisional biopsy were discussed with the patient. She understands and wishes to proceed with this. Risks include but are not limited to bleeding, infection, reaction to the anesthetic. Additionally she understands she will have a needle localization done preoperatively. We discussed a mastopexy incision. She wishes us to utilize this if possible. She understands she will be asymmetric with respect to the location of the nipple areolar complex on the contralateral side and wishes to proceed. Encounter 25 minutes, > 50% of tiem in planning and counselling
== END | disposition home or self-care (01) ==
LOC: WWCWWP 12:23
PROVIDERS: ATTEND Surgery
DX: Z53.9 Procedure and treatment not carried out, unspecified reason (principal)

== ENCOUNTER 2020-02-05 09:59 | Day surgery (SDC) | payer OTHER ==
--- NOTE | 2020-01-31 09:49 | P.PN ---
Subjective Progress Note Date: 01/31/20 Principal diagnosis: Mammographic abnormalities right breast Abnormal right breast mammogram Mena is a 54-year-old white female who had a routine screening mammogram performed in November 2018. Additional views of the right breast recommended and this revealed 2 heterogeneous upper outer quadrant middle depth groups of calcifications. The more posterior group was 6 mm and the more anterior was 3 mm. Biopsy was recommended of the larger group with recommendation of the s econd group to be made after results of the biopsy of the larger group was determined. The patient herself does not feel anything of concern in either breast. At times she does have some discomfort in her breast which is intermittent in nature and is not hurting at the present time. No nipple discharge of concern in the breast. No trauma or infection in the breast. She has over the past 10 years had some discharge from pores on the area on both sides of the breast. She has never been treated for infection. She was scheduled multiple times for stereotactic core biopsy but was unable to make these appointments. She did come on 11-09-19 for stereotactic core biopsy but was extremely anxious and unable to sit still on the stereotactic core biopsy table. Therefore the procedure was terminated. Her case was reviewed with Dr. Bang from radiology and he feels that needle localization even if she is moving somewhat would be a better choice and excision in the operating room. The patient expressed concern that she did not feel safe at home, she was given information regarding crisis shelters and contact information. She actually presented for a needle localization and excisional lumpectomy however preauthorization had not been obtained from the insurance company and therefore the procedure was canceled. Authorization has been obtained at this time and the patient is ready to proceed. Family history: mother: breast cancer at 63, second primary on the other side Hormonal History: menarche: 12 , 3 miscarrages, breast fed: yes, first born at 18; with one tube and ovary removed menopause: 48 BCP: no, hormones: no Medical History: DM HTN high cholesterol COPD arthritis bipolar anxiety/depression Post traumatic stress disorder Surgical History: 1. tube and ovary removed 2. tonsils removed 3. gallbladder Social History: smoke: 1/PPD for 44 years alcohol: 39-49 a severe alcoholic, last drank several months ago drugs: none - Constitutional Constitutional: Denies chills, Denies fever - EENT Eyes: bilateral blurred vision Ears: bilateral: tinnitus Ears, nose, mouth and throat: Denies headache, Denies sore throat - Breasts Breasts: bilateral: as per HPI - Cardiovascular Cardiovascular: Reports high blood pressure - Respiratory Comment: smoker, COPD - Gastrointestinal Gastrointestinal: Reports constipation, Reports diarrhea - Genitourinary (Female) Comment: UTI in past Genitourinary: Denies dysuria, Denies hematuria - Menstruation Menstruation: Reports postmenopausal - Musculoskeletal Comment: arthritis - Integumentary Integumentary: Denies pruritus, Denies rash - Neurological Neurological: Reports numbness, Denies weakness - Psychiatric Psychiatric: Reports anxiety, bipolar follows with DR. Galeas, does not see a psychiatrist - Endocrine Comment: diabetes hypothyroid Endocrine: Reports weight change - Hematologic/Lymphatic Comment: none Objective - Exam BMI 40 - Constitutional General appearance: Present: obese - EENT Eyes: Present: EOMI ENT: Present: hearing grossly normal - Neck Neck: Present: normal ROM - Respiratory Respiratory: bilateral: CTA - Cardiovascular Rhythm: regular Heart sounds: normal: S1, S2 - Integumentary Integumentary: Present: normal turgor - Musculoskeletal Musculoskeletal: Present: gait normal - Psychiatric Psychiatric: Present: A&O x's 3 - Additional findings Additional findings: Breast examination: Broad: Extra-large sports bra Inspection: Bilateral grade 3 ptosis right breast larger than left Palpation: Right breast multi-positional exam no dominant masses or nodules of concern fibrocystic changes Right axilla: No adenopathy of concern Left breast: Multi-positional exam fibrocystic changes no dominant masses or nodules of concern Left axilla: No adenopathy of concern Assessment and Plan Assessment: Impression: 1. Mammographic abnormality right breast 2 areas strongly recommended tissue diagnosis, patient was unable to undergo stereo biopsy secondary to agitation and moving repeatedly on the stereo table 2. Bipolar 3. Anxiety 4. History of alcohol abuse disorder in the past 5. Diabetes 6. Hypertension 7. High cholesterol 8. COPD 9. Arthritis 10. Obesity BMI 40 11. Anxiety/depression 12. Post traumatic stress disorder Plan: 1. Needle localization and excisional partial mastectomy in the operating room of 2 areas of concern in the right breast, if possible she would like this to be done via mastopexy incision, possible onco- plastic tissue transfer 2. Preoperative clearance from Dr. Gongora
[2020-02-01 14:39] VITALS: BMI 38.2
[~2020-02-05 09:59] MED LIST changes: -CEPHALEXIN 500 MG CAP PO STA; -CEPHALEXIN 500MG STARTER PACK 4 CAP BTL PO STA; +DEXAMETHASONE SOD PHOSPHATE 4 MG/ML 1 ML VIAL IV ONE; +HEPARIN SODIUM,PORCINE 5,000 UNIT/ML 1 ML VIAL SQ PRN; +HYDROcodone/APAP 5-325MG 1 EACH TAB PO ONE; +HYDROmorphone 0.5 MG/0.5 ML SYRINGE IVP PRN; +LACTATED RINGERS 1,000 ML IV SCH; +LIDOCAINE 1% (10MG/ML) FOR IV START INTRADERMA PRN; +MIDAZOLAM 2 MG/2 ML VIAL IV PRN; +ONDANSETRON 4 MG/2 ML VIAL IVP ONE; +Pre Op ABX Message 1 EACH MISC MISCELLANE ONE
[2020-02-05 12:34] LABS: Glucose,Whole Blood 135 mg/dL (75-99)
[2020-02-05] MEDS ORDERED: ALPRAZolam 0.5 MG TAB ONE (12:57)
[2020-02-05] MEDS ORDERED: ALPRAZolam 0.5 MG TAB PO ONE (12:59)
[2020-02-05] MEDS ORDERED: LIDOCAINE 1% INJ 10MG/ML (20 ML MDV) SQ ONE (13:22)
[2020-02-05 15:34] LABS: Basophils # (A) 0.1 k/uL (0-0.2); Basophils % (A) 1 %; Eosinophils # (A) 0.2 k/uL (0-0.7); Eosinophils % (A) 3 %; HCT 36.7 % (34.0-46.0); HGB 12.8 gm/dL (11.4-16.0); Lymphocytes % (A) 28 %; MCH 33.1 pg (25.0-35.0); MCHC 34.8 g/dL (31.0-37.0); Mean Platelet Volume 7.5; Monocytes # (A) 0.3 k/uL (0-1.0); Monocytes % (A) 4 %; Neutrophils # (A) 4.5 k/uL (1.3-7.7); Neutrophils % (A) 63 %; Platelet Count 202 k/uL (150-450); RBC 3.86 m/uL (3.80-5.40); RDW 13.2 % (11.5-15.5); WBC 7.1 k/uL (3.8-10.6)
[2020-02-05 15:43] LABS: African American GFR (CKD) >90 (>60 ml/min/1.73 sqM); Anion Gap 7 mmol/L; Blood Urea Nitrogen 13 mg/dL (7-17); Calcium 8.8 mg/dL (8.4-10.2); Carbon Dioxide 26 mmol/L (22-30); Chloride 104 mmol/L (98-107); Glucose 120 mg/dL (74-99); Non-African American GFR(CKD) >90 (>60 ml/min/1.73 sqM); Potassium 4.2 mmol/L (3.5-5.1); Sodium 137 mmol/L (137-145)
[2020-02-05] MEDS ORDERED: fentaNYL (PF) 50 MCG/ML 2 ML AMP ONE (18:10)
[2020-02-05] MEDS ORDERED: SUCCINYLCHOLINE CHLORIDE 100 MG/5 ML SYR IV ONE (18:10)
[2020-02-05] MEDS ORDERED: MIDAZOLAM 2 MG/2 ML VIAL ONE (18:10)
[2020-02-05] MEDS ORDERED: LIDOCAINE 1% INJ 10MG/ML (20 ML MDV) ONE (18:10)
[2020-02-05] MEDS ORDERED: HYDROmorphone (PF) 1 MG/ML ONE (18:10)
[2020-02-05] MEDS ORDERED: PROPOFOL 10 MG/ML 20 ML VIAL IV ONE (18:10)
--- NOTE | 2020-02-05 19:07 | P.OP ---
Date of Procedure: 02/05/20 Preoperative Diagnosis: Microcalcifications of concern 2 spots right breast Postoperative Diagnosis: Same Procedure(s) Performed: Needle localization of 2 areas of concern in the right breast and excisional lumpectomy in the operating room, onco-plastic tissue transfer; 56 cm of tissue transferred Anesthesia: TYLERA Surgeon: Roz Pepper Estimated Blood Loss (ml): 5 IV fluids (ml): 700 Pathology: other (beast tissue) Condition: stable Disposition: same day Indications for Procedure: Microcalcifications of concern right breast. Attempted stereo biopsy not able to be performed Operative Findings: Fibrofatty breast tissue Description of Procedure: Mena is a 55-year-old white female who was noted to have 2 areas of concern with microcalcifications in the right breast. The areas were both localized preoperatively. The patient was brought to the operating room. Following induction of anesthesia the right breast was prepped and draped in a sterile fashion. An incision was made in the tissue surrounding both shafts of the needle down to the tips was excised. The cavity was 5 x 4 cm squared. The wound was examined for hemostasis. After assured that this was attained titanium clips were placed. The superior tissue was mobilized 7 x 2 cm 21 cm, the inferior tissue was mobilized 5-6 cm 15 cm. The pillars of tissue were brought together using 3-0 Vicryl suture. The subcutaneous tissue was closed using 3-0 Vicryl suture. The skin was closed using 4-0 Monocryl. The specimen was painted for orientation radiograph was performed. The calcifications of concern were identified in the specimen. The patient tolerated the procedure in stable condition. All instrument and sponge counts were correct at the end of the case.
--- NOTE | 2020-02-05 19:09 | P.DS ---
Providers Attending physician: Roz Pepper Primary care physician: Isacc Gongora Plan - Discharge Summary Discharge Rx Participant: No New Discharge Prescriptions: No Action Dextroamphetamine/Amphetamine [Adderall] 20 mg PO BID Simvastatin [Zocor] 80 mg PO HS Potassium Chloride 8 meq PO QAM Aspirin 81 mg PO HS DULoxetine HCL [Cymbalta] 60 mg PO BID metFORMIN HCL 1,000 mg PO BID Levothyroxine Sodium [Synthroid] 50 mcg PO QAM Chlorthalidone [Hygroton] 25 mg PO QAM Ergocalciferol [Vitamin D2 (DRISDOL)] 50,000 unit PO Q14D Albuterol Nebulized [Ventolin Nebulized] 2.5 mg INHALATION RT-QID Albuterol Sulfate [Proair Hfa] 1 - 2 puff INHALATION Q4HR PRN #1 inhaler PRN Reason: difficulty in breathing Baclofen [Lioresal] 5 mg PO BID #0 Semaglutide [Ozempic] 0.25 mg SQ WEEKLY QUEtiapine FUMARATE [SEROquel XR] 300 mg PO HS Brexpiprazole [Rexulti] 0.5 mg PO HS cloNIDine HCL [Catapres] 0.2 mg PO BID Divalproex [Depakote] 500 mg PO BID Glimepiride [Amaryl] 2 mg PO BID Insulin Glargine,Hum.rec.anlog [Basaglar Kwikpen U-100] 40 unit SQ QAM Discharge Medication List Aspirin 81 mg PO HS 08/07/14 [History] Dextroamphetamine/Amphetamine [Adderall] 20 mg PO BID 08/07/14 [History] Potassium Chloride 8 meq PO QAM 08/07/14 [History] Simvastatin [Zocor] 80 mg PO HS 08/07/14 [History] DULoxetine HCL [Cymbalta] 60 mg PO BID 12/10/16 [History] Chlorthalidone [Hygroton] 25 mg PO QAM 10/31/18 [History] Levothyroxine Sodium [Synthroid] 50 mcg PO QAM 10/31/18 [History] metFORMIN HCL 1,000 mg PO BID 10/31/18 [History] Albuterol Nebulized [Ventolin Nebulized] 2.5 mg INHALATION RT-QID 11/24/18 [History] Ergocalciferol [Vitamin D2 (DRISDOL)] 50,000 unit PO Q14D 11/24/18 [History] Albuterol Sulfate [Proair Hfa] 1 - 2 puff INHALATION Q4HR PRN #1 inhaler 12/13 [Rx] Baclofen [Lioresal] 5 mg PO BID #0 07/29/19 [Rx] Semaglutide [Ozempic] 0.25 mg SQ WEEKLY 10/25/19 [History] Brexpiprazole [Rexulti] 0.5 mg PO HS 10/30/19 [History] Divalproex [Depakote] 500 mg PO BID 10/30/19 [History] Glimepiride [Amaryl] 2 mg PO BID 10/30/19 [History] QUEtiapine FUMARATE [SEROquel XR] 300 mg PO HS 10/30/19 [History] cloNIDine HCL [Catapres] 0.2 mg PO BID 10/30/19 [History] Insulin Glargine,Hum.rec.anlog [Basaglar Kwikpen U-100] 40 unit SQ QAM 02/01/20 [History] Follow up Appointment(s)/Referral(s): Roz Pepper MD [STAFF PHYSICIAN] - 3 Days Activity/Diet/Wound Care/Special Instructions: do not drive until seen by Dr. Sam friend showmadhuri after 48 hours Discharge Disposition: HOME SELF-CARE
[2020-02-05 19:40] VITALS: TEMP 97.6
[2020-02-05] MEDS ORDERED: LACTATED RINGERS 1,000 ML IV ONE (19:49)
[2020-02-05 20:18] LABS: Glucose,Whole Blood 193 mg/dL (75-99)
[2020-02-05 20:36] VITALS: RESP 16
[2020-02-05] MEDS ORDERED: HYDROcodone/APAP 5-325MG 1 EACH TAB ONE (20:38)
[2020-02-05 20:52] VITALS: BP 142/82; PULSE 99
--- NOTE | 2020-02-06 17:23 | MM ---
EXAMINATION TYPE: MG surgical specimen RT DATE OF EXAM: 02/05/2020 COMPARISON: 10/25/2019 CLINICAL HISTORY: Abnormal mammogram, calcifications Specimen: The two wires and the targeted calcifications are identified within the specimen mammogram. IMPRESSION: 1. Successful wire localization and excision. Recommendations: 1. Recommendations are pending pathology results. Pathology Results: Benign RIGHT BREAST, LUMPECTOMY: Fibrocystic change with focal apocrine metaplasia and multiple small focal areas of dystrophic calcification. Negative for neoplasm. Recommendation Follow up mammogram of the right breast in 6 months. ROSITA
--- NOTE | 2020-02-07 08:00 | MM ---
EXAMINATION TYPE: MG pre op needle loc RT DATE OF EXAM: 02/05/2020 COMPARISON: 12/20/2018 CLINICAL HISTORY: Abnormal mammogram TECHNIQUE: Needle localization with wire placement and surgical excision of area of concern in the right breast. FINDINGS: The procedure of needle localization with wire placement for surgical excision was explained to the patient. Risk, benefits, and alternatives were discussed. An informed consent was then obtained. A timeout was performed. The overlying skin was prepped and draped in usual sterile fashion. Lidocaine 1% was used as anesthetic into the skin and subcutaneous tissue up to the level of area of concern. A 7 cm needle was used. This was placed via a superior approach under mammographic guidance. This was labeled for the posterior calcifications. A 5 cm needle was placed utilizing a superior approach for the more anterior calcifications. Subsequent 90 degrees mammogram show the needle to be in satisfactory position relative to the targeted area. The wires were placed through the needle and each needle was withdrawn. The wires were fixed to patient's skin. Images were marked for surgeon. The patient tolerated the procedure well without any immediate complication. Specimen: Specimen demonstrates the calcifications adjacent to the wires. IMPRESSION: 1. Successful wire localization and excision. Recommendations: 1. Recommendations are pending pathology results. Pathology Results: Benign RIGHT BREAST, LUMPECTOMY: Fibrocystic change with focal apocrine metaplasia and multiple small focal areas of dystrophic calcification. Negative for neoplasm. Recommendation Follow up mammogram of the right breast in 6 months. ROSITA
--- NOTE | 2020-02-11 11:05 | MM ---
MG Pre Op Loc Each Addl RT EXAMINATION TYPE: MG pre op needle loc RT DATE OF EXAM: 02/05/2020 COMPARISON: 12/20/2018 CLINICAL HISTORY: Abnormal mammogram TECHNIQUE: Needle localization with wire placement and surgical excision of area of concern in the right breast. FINDINGS: The procedure of needle localization with wire placement for surgical excision was explained to the patient. Risk, benefits, and alternatives were discussed. An informed consent was then obtained. A timeout was performed. The overlying skin was prepped and draped in usual sterile fashion. Lidocaine 1% was used as anesthetic into the skin and subcutaneous tissue up to the level of area of concern. A 7 cm needle was used. This was placed via a superior approach under mammographic guidance. This was labeled for the posterior calcifications. A 5 cm needle was placed utilizing a superior approach for the more anterior calcifications. Subsequent 90 degrees mammogram show the needle to be in satisfactory position relative to the targeted area. The wires were placed through the needle and each needle was withdrawn. The wires were fixed to patient's skin. Images were marked for surgeon. The patient tolerated the procedure well without any immediate complication. Specimen: Specimen demonstrates the calcifications adjacent to the wires. IMPRESSION: 1. Successful wire localization and excision. Recommendations: 1. Recommendations are pending pathology results. Pathology Results: Benign RIGHT BREAST, LUMPECTOMY: Fibrocystic change with focal apocrine metaplasia and multiple small focal areas of dystrophic calcification. Negative for neoplasm. RECOMMENDATION: Follow-up diagnostic mammogram of the right breast in 6 months. ROSITA
== END 2020-02-05 21:25 | disposition home or self-care (01) ==
LOC: OR 09:59
PROVIDERS: ATTEND Surgery
DX: N60.81 Other benign mammary dysplasias of right breast (principal); R92.0 Mammographic microcalcification found on diagnostic imaging of breast
CPT/HCPCS: 19301; 19281; 19282; 80048; 85025; 88307; 76098; J2250; J1644; J1100; J2405; J2001; J3010; J1170; J0330; J2704

== ENCOUNTER → 2020-02-08 | Outpatient (CLI) | payer OTHER ==
--- NOTE | 2020-02-08 09:53 | P.PN ---
Progress Note - Text Progress Note Date: 02/08/20 Mena is a 55-year-old white female status post right breast needle localization and excisional biopsy on . Pathology revealed benign findings. The patient tolerated the procedure without difficulty. She has not had any fever or chills. She does have some mild erythema near the site as well as some ecchymosis. Examination: Lungs: Clear Heart: Regular rate and rhythm Incision: Clean and dry no evidence of infection mild erythema near the site as well as some ecchymosis Plan: 1. Repeat right breast mammogram in 6 months physician exam 2. Patient is given a prescription for Keflex secondary to the mild erythema 2. Patient states that she has used all her pain medication was given a prescription for 5 more norco cc: Dr. Gongora
== END | disposition home or self-care (01) ==
DX: Z53.9 Procedure and treatment not carried out, unspecified reason (principal)